=== PATIENT | female | born 1985 | race Caucasian/White ===

== ENCOUNTER 2020-11-27 16:26 | Inpatient (IN) | payer OTHER ==
[~2020-11-27 16:26] MED LIST: Iopamidol-370 76% 500 ML 1 ML ONE
[2020-11-27 17:32] LABS: #Basophils 0.1 thou/uL (0.0-0.2); #Eosinphils 0.1 thou/uL (0.0-0.7); #Lymphocytes 1.5 thou/uL (1.20-3.40); #Monocytes 0.7 thou/uL (0.11-0.59); #Neutrophils 2.6 thou/uL (1.40-6.50); %Basophils 1.3 % (0.0-1.0); %Eosinophils 2.4 % (0.0-10.0); %Lymphocytes 29.6 % (21.0-51.0); %Monocytes 13.9 % (0.0-10.0); %Neutrophils 52.7 % (42.0-75.0); Hemoglobin 10.2 g/dL (12.0-16.0); Mean Corpuscular HGB CONC 31.9 g/dL (32.0-36.0); Mean Corpuscular Hemoglobin 31.7 pg (27.0-31.0); Mean Corpuscular Volume 99.4 fL (78.0-98.0); Mean Platelet Volume 7.5 fL (7.4-10.4); Platelet Count 185 thou/uL (130-400); RBC Distribution Width 15.2 % (11.5-14.5); Red Blood Cell (RBC) Count 3.23 mill/uL (4.20-5.40); White Blood Cell (WBC) Count 4.9 thou/uL (4.8-10.8)
[2020-11-27] MEDS ORDERED: Ondansetron PF 4 MG/2 ML Vial ONE ×2 (17:42→20:32)
[2020-11-27] MEDS ORDERED: Morphine 4 MG/ML VIAL ONE ×2 (17:42→19:04)
[2020-11-27 18:03] LABS: ALT (SGPT) 87 U/L (8-55); AST (SGOT) 156 U/L (5-34); Albumin 2.4 g/dL (3.5-5.0); Alkaline Phosphatase 158 U/L (40-110); Anion Gap 12 mmol/L (10-20); BUN (Urea Nitrogen) 17 mg/dL (7.0-18.7); Bilirubin, Total 3.7 mg/dL (0.2-1.2); Calc. Creatinine Clearance 0 mL/min (70-130); Calcium 8.1 mg/dL (7.8-10.44); Carbon Dioxide 21 mmol/L (22-29); Chloride 111 mmol/L (98-107); Globulin 4.7 g/dL (2.4-3.5); Glucose 118 mg/dL (70-105); Protein, Total 7.1 g/dL (6.0-8.3); Sodium 141 mmol/L (136-145)
[2020-11-27 18:06] LABS: BHCG - Serum Negative (NEGATIVE); Pregs Control Background? CLEAR/WHITE (CLR/WHITE); Pregs Control Bar Appear? YES (CONTROL BAR)
[2020-11-27] MEDS ORDERED: Nitroglycerin 0.4 MG TAB 1 EACH ONE ×2 (20:02→20:40)
[2020-11-27] MEDS ORDERED: Fentanyl 100 MCG/2 ML VIAL ONE (20:32)
[2020-11-27 23:36] LABS: Troponin I Less than 0.010 ng/mL (< 0.028)
[2020-11-28 01:32] VITALS: BMI 23.3
[2020-11-28] MEDS ORDERED: FLU VACC QS2021-22(6MOS UP)/PF 60 MCG/0.5 ML SYRINGE IM ONE (01:45)
[2020-11-28 01:46] LABS: Troponin I Less than 0.010 ng/mL (< 0.028)
[2020-11-28] MEDS ORDERED: Acetaminophen 325 MG TAB PO PRN (02:37)
[2020-11-28] MEDS ORDERED: Nitroglycerin 0.4 MG TAB (25 Tab Bottle) SL PRN (02:37)
[2020-11-28] MEDS ORDERED: Electrolyte Replacement Protocol 1 EACH FS SCH (03:00)
[2020-11-28] MEDS: Potassium Chloride 20 MEQ in Premix Bag 1 BAG IVPB SCH ×2 (05:45→11:53)
[2020-11-28 06:16] LABS: #Eosinphils 0.1 thou/uL (0.0-0.7); #Monocytes 0.6 thou/uL (0.11-0.59); #Neutrophils 2.2 thou/uL (1.40-6.50); %Basophils 0.9 % (0.0-1.0); %Eosinophils 2.4 % (0.0-10.0); %Neutrophils 44.7 % (42.0-75.0); Hemoglobin 10.1 g/dL (12.0-16.0); Mean Corpuscular HGB CONC 31.2 g/dL (32.0-36.0); Mean Corpuscular Hemoglobin 31.6 pg (27.0-31.0); Mean Platelet Volume 7.4 fL (7.4-10.4); Platelet Count 162 thou/uL (130-400); RBC Distribution Width 15.5 % (11.5-14.5); Red Blood Cell (RBC) Count 3.21 mill/uL (4.20-5.40); White Blood Cell (WBC) Count 4.9 thou/uL (4.8-10.8)
[2020-11-28 06:18] LABS: Anion Gap 12 mmol/L (10-20); BUN (Urea Nitrogen) 14 mg/dL (7.0-18.7); Calc. Creatinine Clearance 121 mL/min (70-130); Calcium 7.9 mg/dL (7.8-10.44); Carbon Dioxide 21 mmol/L (22-29); Cardiac Risk 4.7 (Less than 4.5); Chloride 111 mmol/L (98-107); Cholesterol 71 mg/dl (< 200 Desired); Glucose 85 mg/dL (70-105); HDL Cholesterol 15 mg/dL (>60 Neg Risk); LDL Cholesterol, Calculated 46 mg/dL; Sodium 141 mmol/L (136-145); Triglycerides 50 mg/dL (Less than 150)
[2020-11-28 06:21] LABS: Potassium 2.9 mmol/L (3.5-5.1)
[2020-11-28] MEDS: Ondansetron PF 4 MG/2 ML Vial IVP PRN (10:13)
[2020-11-28 12:02] LABS: SARS-CoV-2 PCR by NAA Not Detected (NotDetected)
[2020-11-28] MEDS ORDERED: Potassium Bicarbonate/Cit Ac 20 MEQ TAB PO SCH ×2 (14:15→20:45)
[2020-11-28 14:31] LABS: INR-International Normal Ratio 1.7; Prothrombin Time 19.8 sec (12.0-14.7)
[2020-11-28] MEDS: Lactated Ringer's 1,000 ML IV SCH ×2 (16:20→23:36)
[2020-11-28] MEDS: Naproxen 500 MG TAB PO SCH (21:18)
[2020-11-28] MEDS: Acetaminophen 500 MG TAB PO SCH (21:19)
[2020-11-28] MEDS: Calcium Carbonate 500 MG ChewTAB PO PRN (21:20)
[2020-11-29 06:20] LABS: INR-International Normal Ratio 1.6; Prothrombin Time 19.3 sec (12.0-14.7)
[2020-11-29 06:40] LABS: Anion Gap 13 mmol/L (10-20); BUN (Urea Nitrogen) 12 mg/dL (7.0-18.7); Calc. Creatinine Clearance 114 mL/min (70-130); Calcium 7.9 mg/dL (7.8-10.44); Carbon Dioxide 16 mmol/L (22-29); Chloride 111 mmol/L (98-107); Glucose 99 mg/dL (70-105); Potassium 4.2 mmol/L (3.5-5.1); Sodium 136 mmol/L (136-145)
[2020-11-29] MEDS: Calcium Carbonate 500 MG ChewTAB PO PRN ×2 (08:40→18:28)
[2020-11-29] MEDS: Acetaminophen 500 MG TAB PO SCH ×4 (08:41→21:29)
[2020-11-29] MEDS: Naproxen 500 MG TAB PO SCH ×3 (08:42→21:29)
[2020-11-29] MEDS ORDERED: Apixaban 5 MG TAB PO SCH ×2 (09:00→18:00)
[2020-11-29] MEDS ORDERED: Enoxaparin Sodium 40 MG/0.4 ML SYRINGE SC SCH (09:00)
[2020-11-29] MEDS ORDERED: Ergocalciferol 1.25 MG(50,000 UNITS) CAP PO SCH (09:00)
[2020-11-29] MEDS ORDERED: Lactated Ringer's 1,000 ML IV SCH (10:15)
[2020-11-29] MEDS: Calcium Carbonate 600 MG TAB PO SCH (10:28)
[2020-11-29] MEDS: ALPRAZolam 0.25 MG TAB PO SCH ×2 (10:28→21:28)
[2020-11-29] MEDS: busPIRone HCl 5 MG TAB PO SCH ×2 (10:29→21:27)
[2020-11-29] MEDS: traMADol HCl 50 MG TAB PO SCH ×2 (10:29→21:27)
[2020-11-29] MEDS: Escitalopram Oxalate 20 mg Tablet PO SCH ×2 (10:30→21:27)
[2020-11-29] MEDS: Potassium Chloride 10 MEQ TAB PO SCH (10:30)
[2020-11-29] MEDS: Baclofen 10 MG TAB PO SCH (10:31)
[2020-11-29] MEDS: Gabapentin 100 MG CAP PO SCH ×3 (10:31→21:26)
[2020-11-29] MEDS: Rifaximin 550 MG TAB PO SCH (10:31)
[2020-11-29] MEDS: Lactated Ringer's 1,000 ML IV SCH (14:44)
[2020-11-29 15:10] LABS: Anion Gap 15 mmol/L (10-20); BUN (Urea Nitrogen) 10 mg/dL (7.0-18.7); Calc. Creatinine Clearance 116 mL/min (70-130); Carbon Dioxide 17 mmol/L (22-29); Chloride 107 mmol/L (98-107); Glucose 107 mg/dL (70-105); Potassium 3.6 mmol/L (3.5-5.1); Sodium 135 mmol/L (136-145)
[2020-11-29] MEDS ORDERED: traZODone HCl 50 MG TAB PO SCH (21:00)
[2020-11-29] MEDS: Sodium Bicarbonate Tab 325 MG TAB PO SCH (21:25)
[2020-11-29] MEDS: Ondansetron PF 4 MG/2 ML Vial IVP PRN (22:34)
[2020-11-30 06:39] LABS: Anion Gap 10 mmol/L (10-20); BUN (Urea Nitrogen) 9 mg/dL (7.0-18.7); Calc. Creatinine Clearance 128 mL/min (70-130); Calcium 7.7 mg/dL (7.8-10.44); Carbon Dioxide 21 mmol/L (22-29); Chloride 106 mmol/L (98-107); Glucose 86 mg/dL (70-105); Iron 88 ug/dL (50-170); Iron Binding Capacity, Total 84 mcg/dL (265-497); Sodium 133 mmol/L (136-145)
[2020-11-30 06:58] LABS: Ferritin 416.38 ng/mL (10-291)
[2020-11-30 07:11] LABS: HBCM Index 0.11 S/CO (0-0.79); HBSAg Index 0.21 S/CO (0-0.99); Hep A IgM AB Non-Reactive (NonReactive); Hep A IgM S/CO 0.26 S/CO (0-0.79); Hep B Surf Ag Non-Reactive S/CO (NonReactive); Hep C IgG Ab Non-Reactive (NonReactive); Hep C Index 0.15 S/CO (0-0.79); Hepatitis B Core IgM Abs Non-Reactive (NonReactive)
[2020-11-30] MEDS: Sodium Bicarbonate Tab 325 MG TAB PO SCH ×2 (08:55→10:43)
[2020-11-30] MEDS: traMADol HCl 50 MG TAB PO SCH (08:55)
[2020-11-30] MEDS: Naproxen 500 MG TAB PO SCH (08:57)
[2020-11-30] MEDS: Baclofen 10 MG TAB PO SCH ×2 (08:57→10:44)
[2020-11-30] MEDS: ALPRAZolam 0.25 MG TAB PO SCH (08:57)
[2020-11-30] MEDS: Escitalopram Oxalate 20 mg Tablet PO SCH ×2 (08:57→10:46)
[2020-11-30] MEDS: Potassium Chloride 10 MEQ TAB PO SCH ×2 (08:58→10:45)
[2020-11-30] MEDS: Acetaminophen 500 MG TAB PO SCH ×2 (08:58→16:14)
[2020-11-30] MEDS: busPIRone HCl 5 MG TAB PO SCH ×2 (08:58→10:44)
[2020-11-30] MEDS: Calcium Carbonate 600 MG TAB PO SCH ×2 (08:59→10:45)
[2020-11-30] MEDS: Rifaximin 550 MG TAB PO SCH ×3 (08:59→10:46)
[2020-11-30] MEDS: Gabapentin 100 MG CAP PO SCH ×3 (08:59→16:12)
[2020-11-30] MEDS: Lactated Ringer's 1,000 ML IV SCH (09:15)
[2020-11-30 10:34] LABS: ALT (SGPT) 76 U/L (8-55); AST (SGOT) 95 U/L (5-34); Albumin 2.1 g/dL (3.5-5.0); Alkaline Phosphatase 160 U/L (40-110); Bilirubin, Direct 2.3 mg/dL (0.1-0.3); Protein, Total 6.4 g/dL (6.0-8.3)
[2020-11-30] MEDS ORDERED: Magnevist 469MG/ML 20 ML VIAL ONE (11:24)
[2020-11-30 20:49] VITALS: BP 129/70; TEMP 98.1
[2020-12-01 16:59] LABS: ANA Symphony (Qualitative) Negative (Negative); ANA Symphony (Quantitative) 0.5 Ratio (< 0.7 Negative); EliA Vaculitis New Method **** NEW METHOD ****; Mitochondrial Ab 1.7 U/mL (<4 Negative); dsDNA IgG Antibody 1.6 IU/mL (<10 Negative)
== END 2020-11-30 19:55 | disposition home or self-care (01) | DRG 442 ==
LOC: ERS 16:26 → 2SW 22:01 → OBSVTOIN 11-29 12:18
PROVIDERS: ADMIT Internal Medicine; ATTEND Internal Medicine
DX: K76.0 Fatty (change of) liver, not elsewhere classified (principal); E87.2 Acidosis; E87.1 Hypo-osmolality and hyponatremia; R06.02 Shortness of breath; R07.9 Chest pain, unspecified; R53.1 Weakness; Z20.822 Contact with and (suspected) exposure to COVID-19; I10 Essential (primary) hypertension; F32.A Depression, unspecified; E87.6 Hypokalemia; K21.9 Gastro-esophageal reflux disease without esophagitis; U09.9 Post COVID-19 condition, unspecified; D53.9 Nutritional anemia, unspecified; Z90.49 Acquired absence of other specified parts of digestive tract; Z98.84 Bariatric surgery status; Z99.3 Dependence on wheelchair; Z91.14 Patient's other noncompliance with medication regimen
CPT/HCPCS: 36415; 71275; 74183; 76705; 80048; 80053; 80061; 80074; 80076; 82103; 82390; 82728; 83516; 83540; 83550; 84484; 84703; 85025; 85610; 86038; 86225; 93005; 96372; 96374; 96375; 96376; A9579; G0378; J1650; J2270; J2405; J3010; J3480; J7120; Q9967; U0003; U0005

== ENCOUNTER 2020-12-16 22:13 | Inpatient (IN) | payer OTHER ==
[2020-12-16] MEDS ORDERED: Cefepime 2 GM VIAL ONE (22:41)
[2020-12-16 22:57] LABS: #Eosinphils 0.1 thou/uL (0.0-0.7); #Lymphocytes 1.4 thou/uL (1.20-3.40); #Monocytes 0.6 thou/uL (0.11-0.59); #Neutrophils 3.1 thou/uL (1.40-6.50); %Basophils 0.8 % (0.0-1.0); %Eosinophils 1.5 % (0.0-10.0); %Lymphocytes 26.3 % (21.0-51.0); %Monocytes 12.3 % (0.0-10.0); Hemoglobin 10.4 g/dL (12.0-16.0); Mean Corpuscular HGB CONC 32.2 g/dL (32.0-36.0); Mean Corpuscular Hemoglobin 31.9 pg (27.0-31.0); Mean Platelet Volume 8.3 fL (7.4-10.4); Platelet Count 135 thou/uL (130-400); RBC Distribution Width 15.6 % (11.5-14.5); Red Blood Cell (RBC) Count 3.25 mill/uL (4.20-5.40); White Blood Cell (WBC) Count 5.2 thou/uL (4.8-10.8)
[2020-12-16 23:10] LABS: INR-International Normal Ratio 1.5; PTT 36.8 sec (22.9-36.1); Prothrombin Time 18.6 sec (12.0-14.7)
[2020-12-16 23:18] LABS: Lipase 17 U/L (8-78)
[2020-12-16 23:20] LABS: ALT (SGPT) 44 U/L (8-55); AST (SGOT) 55 U/L (5-34); Acetaminophen Less than 6.0 mcg/mL (10.0-30.0); Albumin 2.2 g/dL (3.5-5.0); Alcohol Less than 10 mg/dL (Less than 10); Alkaline Phosphatase 158 U/L (40-110); Anion Gap 11 mmol/L (10-20); BUN (Urea Nitrogen) 9 mg/dL (7.0-18.7); Bilirubin, Total 2.6 mg/dL (0.2-1.2); Calc. Creatinine Clearance 0 mL/min (70-130); Carbon Dioxide 22 mmol/L (22-29); Chloride 104 mmol/L (98-107); Globulin 5.2 g/dL (2.4-3.5); Glucose 99 mg/dL (70-105); Potassium 4.2 mmol/L (3.5-5.1); Protein, Total 7.4 g/dL (6.0-8.3); Salicylate Less than 8.0 mg/dL (15.0-30.0); Sodium 133 mmol/L (136-145)
[2020-12-16 23:35] LABS: Bilirubin Negative (Negative); Blood, Urine Negative (Negative); Clarity Turbid (Clear); Glucose, Urine (Dipstick) Normal (Negative); Ketone, Urine Negative (Negative); Leukocyte Negative Leu/uL (Negative); Nitrite Negative (Negative); Protein, Urine (Dipstick) Negative (Neg-Trace); Specific Gravity, Urine 1.015 (1.002-1.036); Urobilinogen Normal mg/dL (Less than 2); pH, Urine 6.5 (5.0-9.0)
[2020-12-16 23:45] LABS: Amphetamine Detected (NotDetected); Barbiturates Screen Not Detected (NotDetected); Benzodiazepine Screen Not Detected (NotDetected); Cocaine Metabolite Screen Not Detected (NotDetected); Methadone Not Detected (NotDetected); Methamphetamine Not Detected (NotDetected); Opiate Screen Detected (NotDetected); Oxycodone Screen Not Detected (NotDetected); Phencyclidine (PCP) Not Detected (NotDetected); THC/Cannabinoid Screen Not Detected (NotDetected); Tricyclic Screen Not Detected (NotDetected)
[2020-12-17] MEDS ORDERED: Naloxone HCl 0.4 mg/ml Vial IV SCH (00:45)
[2020-12-17] MEDS ORDERED: Vancomycin 1 GM/200 ML BAG ONE (00:53)
[2020-12-17] MEDS ORDERED: Acetaminophen 650 MG Suppository PR PRN (01:08)
[2020-12-17] MEDS ORDERED: Acetaminophen 325 MG TAB PO PRN (01:08)
[2020-12-17] MEDS ORDERED: Naloxone HCl 0.4 mg/ml Vial ONE (01:10)
[2020-12-17] MEDS ORDERED: Rifaximin 550 MG TAB PO SCH (02:00)
[2020-12-17 02:18] LABS: Lactic Acid 2.3 mmol/L (0.5-2.2)
[2020-12-17 02:38] LABS: RBC Count-Automated (BF) 18 /cu.mm; WBC/Nucleated-Auto (BF) 46 /cu.mm
[2020-12-17 02:39] LABS: BF Color Yellow; Body Fluid Source Ascites Body Fluid; Clarity Clear (Clear); Tube # CUP
[2020-12-17 02:41] LABS: BF Segmented Neutrophils 39 %; Cell Count Non Hematic 53 %; Lymphocytes 8 %
[2020-12-17 04:29] LABS: Anion Gap 8 mmol/L (10-20); BUN (Urea Nitrogen) 9 mg/dL (7.0-18.7); Calc. Creatinine Clearance 184 mL/min (70-130); Calcium 7.5 mg/dL (7.8-10.44); Carbon Dioxide 21 mmol/L (22-29); Chloride 109 mmol/L (98-107); Glucose 108 mg/dL (70-105); Potassium 3.6 mmol/L (3.5-5.1); Sodium 134 mmol/L (136-145)
[2020-12-17 04:56] LABS: #Lymphocytes 0.8 thou/uL (1.20-3.40); #Monocytes 0.5 thou/uL (0.11-0.59); %Basophils 0.5 % (0.0-1.0); %Eosinophils 0.5 % (0.0-10.0); %Lymphocytes 19.2 % (21.0-51.0); %Monocytes 11.2 % (0.0-10.0); %Neutrophils 68.6 % (42.0-75.0); Hemoglobin 9.3 g/dL (12.0-16.0); Mean Corpuscular HGB CONC 31.7 g/dL (32.0-36.0); Mean Corpuscular Hemoglobin 31.1 pg (27.0-31.0); Mean Corpuscular Volume 98.3 fL (78.0-98.0); Mean Platelet Volume 8.1 fL (7.4-10.4); Platelet Count 118 thou/uL (130-400); Platelet Morphology Comment Appears Decreased; RBC Distribution Width 15.5 % (11.5-14.5); Red Blood Cell (RBC) Count 2.99 mill/uL (4.20-5.40); White Blood Cell (WBC) Count 4.3 thou/uL (4.8-10.8)
[2020-12-17] MEDS: Vancomycin HCl 1.25 GM in Sodium Chloride 0.9% 250 ML 250 ML IVPB SCH ×3 (06:11→21:09)
[2020-12-17 06:41] LABS: SARS-CoV-2 NAA Rapid Test Not Detected (NotDetected)
[2020-12-17] MEDS ORDERED: Albumin 25% 25 GM/100 ML BOT IVPB SCH (07:00)
[2020-12-17] MEDS ORDERED: Sodium Chloride 0.9% 500 ML IV SCH (07:00)
[2020-12-17] MEDS ORDERED: NS 0.9% w/ 20 MEQ KCL 1,000 ML/1,000 ML BAG IV SCH (08:00)
[2020-12-17] MEDS ORDERED: FLU VACC QS2021-22(6MOS UP)/PF 60 MCG/0.5 ML SYRINGE IM ONE (09:00)
[2020-12-17] MEDS ORDERED: VANCOMYCIN 1.25 GM/250 ML BAG 1.25 GM in Premix Bag 1 BAG IVPB SCH (09:00)
[2020-12-17] MEDS ORDERED: Enoxaparin Sodium 40 MG/0.4 ML SYRINGE SC SCH (09:00)
[2020-12-17 09:04] LABS: Lactic Acid 1.7 mmol/L (0.5-2.2)
[2020-12-17] MEDS: Cefepime 2 GM in Sodium Chloride 0.9% 100 ML IVPB SCH ×2 (09:39→20:46)
[2020-12-17] MEDS: Rifaximin 550 MG TAB PO SCH ×2 (10:22→20:47)
[2020-12-17 12:47] LABS: ALT (SGPT) 38 U/L (8-55); AST (SGOT) 45 U/L (5-34); Albumin 2.2 g/dL (3.5-5.0); Alkaline Phosphatase 126 U/L (40-110); Anion Gap 9 mmol/L (10-20); BUN (Urea Nitrogen) 10 mg/dL (7.0-18.7); Bilirubin, Total 2.6 mg/dL (0.2-1.2); Calc. Creatinine Clearance 167 mL/min (70-130); Calcium 7.8 mg/dL (7.8-10.44); Carbon Dioxide 20 mmol/L (22-29); Chloride 112 mmol/L (98-107); Globulin 4.4 g/dL (2.4-3.5); Glucose 105 mg/dL (70-105); Magnesium 1.9 mg/dL (1.6-2.6); Potassium 3.6 mmol/L (3.5-5.1); Protein, Total 6.6 g/dL (6.0-8.3); Sodium 137 mmol/L (136-145)
[2020-12-17] MEDS: Pantoprazole 40 MG VIAL IVP SCH (13:13)
[2020-12-17] MEDS ORDERED: Senokot S 8.6-50 MG TAB PO PRN (16:28)
[2020-12-17] MEDS ORDERED: Calcium Carbonate 500 MG ChewTAB PO PRN (16:28)
[2020-12-17] MEDS ORDERED: Electrolyte Replacement Protocol 1 EACH FS SCH (16:30)
[2020-12-17] MEDS ORDERED: Magnesium 2 GM/50 ML 2 GM in Premix Bag 1 BAG IVPB SCH (16:45)
[2020-12-17] MEDS: NS 0.9% w/ 20 MEQ KCL 1,000 ML/1,000 ML BAG IV SCH ×2 (17:11→20:47)
[2020-12-17] MEDS: Ondansetron PF 4 MG/2 ML Vial IVP PRN (18:53)
[2020-12-17] MEDS ORDERED: Promethazine HCl 25 MG/ML VIAL IM SCH (21:30)
[2020-12-18 04:26] LABS: #Basophils 0.1 thou/uL (0.0-0.2); #Eosinphils 0.1 thou/uL (0.0-0.7); #Lymphocytes 1.4 thou/uL (1.20-3.40); #Monocytes 0.6 thou/uL (0.11-0.59); #Neutrophils 2.4 thou/uL (1.40-6.50); %Basophils 1.2 % (0.0-1.0); %Lymphocytes 30.2 % (21.0-51.0); %Monocytes 13.3 % (0.0-10.0); %Neutrophils 52.4 % (42.0-75.0); Hemoglobin 9.2 g/dL (12.0-16.0); Mean Corpuscular HGB CONC 32.1 g/dL (32.0-36.0); Mean Corpuscular Volume 99.5 fL (78.0-98.0); Mean Platelet Volume 8.1 fL (7.4-10.4); Platelet Count 129 thou/uL (130-400); RBC Distribution Width 16.2 % (11.5-14.5); Red Blood Cell (RBC) Count 2.86 mill/uL (4.20-5.40); White Blood Cell (WBC) Count 4.7 thou/uL (4.8-10.8)
[2020-12-18 04:50] LABS: ALT (SGPT) 36 U/L (8-55); AST (SGOT) 52 U/L (5-34); Alkaline Phosphatase 118 U/L (40-110); Anion Gap 11 mmol/L (10-20); BUN (Urea Nitrogen) 10 mg/dL (7.0-18.7); Bilirubin, Total 2.5 mg/dL (0.2-1.2); Calc. Creatinine Clearance 159 mL/min (70-130); Calcium 7.5 mg/dL (7.8-10.44); Carbon Dioxide 18 mmol/L (22-29); Chloride 116 mmol/L (98-107); Globulin 4.2 g/dL (2.4-3.5); Glucose 100 mg/dL (70-105); Magnesium 2.2 mg/dL (1.6-2.6); Potassium 3.8 mmol/L (3.5-5.1); Protein, Total 6.2 g/dL (6.0-8.3); Sodium 141 mmol/L (136-145)
[2020-12-18 04:51] LABS: Phosphorus 3.1 mg/dL (2.3-4.7)
[2020-12-18] MEDS: NS 0.9% w/ 20 MEQ KCL 1,000 ML/1,000 ML BAG IV SCH ×3 (05:15→20:21)
[2020-12-18] MEDS: metroNIDAZOLE 250 MG TAB PER TUBE SCH ×3 (05:15→20:32)
[2020-12-18] MEDS: Vancomycin HCl 1.25 GM in Sodium Chloride 0.9% 250 ML 250 ML IVPB SCH ×2 (05:38→13:43)
[2020-12-18] MEDS ORDERED: metroNIDAZOLE 250 MG in Admixture Fee 2 EACH IVPB SCH (06:00)
[2020-12-18 06:32] LABS: Vancomycin, Trough 20.7 ug/mL
[2020-12-18] MEDS ORDERED: HYDROcodone/Acetaminophen 5/325 mg Tablet PO PRN (08:32)
[2020-12-18] MEDS: ALPRAZolam 0.25 MG TAB PO PRN ×2 (08:48→16:54)
[2020-12-18] MEDS: Rifaximin 550 MG TAB PO SCH ×2 (08:48→20:32)
[2020-12-18] MEDS: Cefepime 2 GM in Sodium Chloride 0.9% 100 ML IVPB SCH ×2 (09:05→20:33)
[2020-12-18] MEDS: Pantoprazole 40 MG VIAL IVP SCH (10:43)
[2020-12-18] MEDS ORDERED: traZODone HCl 50 MG TAB PO PRN (15:09)
[2020-12-18] MEDS: Ondansetron PF 4 MG/2 ML Vial IVP PRN (17:06)
[2020-12-18] MEDS: traMADol HCl 50 MG TAB PO PRN ×2 (17:23→21:48)
[2020-12-18] MEDS: Baclofen 10 MG TAB PO SCH (20:33)
[2020-12-18] MEDS: Apixaban 2.5 MG TAB PO SCH (20:33)
[2020-12-19] MEDS: Morphine 4 MG/ML VIAL SLOW IVP PRN ×2 (00:02→04:29)
[2020-12-19] MEDS: NS 0.9% w/ 20 MEQ KCL 1,000 ML/1,000 ML BAG IV SCH ×3 (00:02→08:35)
[2020-12-19] MEDS: Ondansetron PF 4 MG/2 ML Vial IVP PRN ×3 (01:12→21:00)
[2020-12-19] MEDS: metroNIDAZOLE 250 MG TAB PER TUBE SCH ×3 (05:56→22:06)
[2020-12-19 08:19] LABS: #Basophils 0.1 thou/uL (0.0-0.2); #Eosinphils 0.2 thou/uL (0.0-0.7); #Lymphocytes 2.2 thou/uL (1.20-3.40); %Basophils 1.5 % (0.0-1.0); %Eosinophils 2.9 % (0.0-10.0); %Lymphocytes 29.4 % (21.0-51.0); %Monocytes 13.8 % (0.0-10.0); %Neutrophils 52.5 % (42.0-75.0); Hemoglobin 10.2 g/dL (12.0-16.0); Mean Corpuscular HGB CONC 31.7 g/dL (32.0-36.0); Mean Corpuscular Hemoglobin 32.2 pg (27.0-31.0); Platelet Count 134 thou/uL (130-400); RBC Distribution Width 16.1 % (11.5-14.5); Red Blood Cell (RBC) Count 3.17 mill/uL (4.20-5.40); White Blood Cell (WBC) Count 7.5 thou/uL (4.8-10.8)
[2020-12-19] MEDS: Rifaximin 550 MG TAB PO SCH ×2 (08:34→22:06)
[2020-12-19] MEDS: Baclofen 10 MG TAB PO SCH ×2 (08:34→22:06)
[2020-12-19] MEDS: ALPRAZolam 0.25 MG TAB PO PRN ×2 (08:35→23:55)
[2020-12-19] MEDS: Cefepime 2 GM in Sodium Chloride 0.9% 100 ML IVPB SCH (08:35)
[2020-12-19] MEDS: Apixaban 2.5 MG TAB PO SCH ×2 (08:35→22:05)
[2020-12-19 08:37] LABS: Phosphorus 2.6 mg/dL (2.3-4.7)
[2020-12-19 08:41] LABS: ALT (SGPT) 42 U/L (8-55); AST (SGOT) 58 U/L (5-34); Alkaline Phosphatase 125 U/L (40-110); Anion Gap 10 mmol/L (10-20); BUN (Urea Nitrogen) 10 mg/dL (7.0-18.7); Bilirubin, Total 2.9 mg/dL (0.2-1.2); Calc. Creatinine Clearance 161 mL/min (70-130); Calcium 7.8 mg/dL (7.8-10.44); Carbon Dioxide 17 mmol/L (22-29); Chloride 111 mmol/L (98-107); Globulin 4.6 g/dL (2.4-3.5); Glucose 98 mg/dL (70-105); Magnesium 1.9 mg/dL (1.6-2.6); Potassium 3.7 mmol/L (3.5-5.1); Protein, Total 6.6 g/dL (6.0-8.3); Sodium 134 mmol/L (136-145)
[2020-12-19] MEDS ORDERED: Magnesium 2 GM/50 ML 2 GM in Premix Bag 1 BAG IVPB SCH (10:00)
[2020-12-19] MEDS: traMADol HCl 50 MG TAB PO PRN (12:05)
[2020-12-19] MEDS ORDERED: Morphine 2 MG/ML VIAL SLOW IVP PRN (14:17)
[2020-12-19] MEDS ORDERED: traMADol HCl 50 MG TAB PO PRN ×2 (14:17→17:21)
[2020-12-19] MEDS ORDERED: Morphine 4 MG/ML VIAL SLOW IVP PRN ×4 (14:30→20:54)
[2020-12-19] MEDS ORDERED: NS 0.9% w/ 20 MEQ KCL 1,000 ML/1,000 ML BAG IV SCH (14:58)
[2020-12-19] MEDS ORDERED: Potassium Chloride 20 MEQ TAB PO SCH (17:30)
[2020-12-19] MEDS ORDERED: Furosemide 40 MG TAB PO SCH (17:30)
[2020-12-19] MEDS: Albumin 25% 25 GM/100 ML BOT IVPB SCH (18:19)
[2020-12-19] MEDS: Cefdinir 300 MG CAP PO SCH (22:06)
[2020-12-20] MEDS: Albumin 25% 25 GM/100 ML BOT IVPB SCH ×3 (01:22→17:00)
[2020-12-20 04:36] LABS: ALT (SGPT) 29 U/L (8-55); AST (SGOT) 38 U/L (5-34); Albumin 2.4 g/dL (3.5-5.0); Alkaline Phosphatase 100 U/L (40-110); Anion Gap 7 mmol/L (10-20); BUN (Urea Nitrogen) 6 mg/dL (7.0-18.7); Bilirubin, Total 2.2 mg/dL (0.2-1.2); Calc. Creatinine Clearance 183 mL/min (70-130); Calcium 7.7 mg/dL (7.8-10.44); Carbon Dioxide 20 mmol/L (22-29); Chloride 107 mmol/L (98-107); Globulin 3.6 g/dL (2.4-3.5); Glucose 101 mg/dL (70-105); Magnesium 1.9 mg/dL (1.6-2.6); Phosphorus 2.5 mg/dL (2.3-4.7); Potassium 3.2 mmol/L (3.5-5.1); Sodium 131 mmol/L (136-145)
[2020-12-20] MEDS ORDERED: hydrOXYzine 10 MG TAB PO SCH (04:45)
[2020-12-20 04:49] LABS: #Basophils 0.1 thou/uL (0.0-0.2); #Eosinphils 0.1 thou/uL (0.0-0.7); #Lymphocytes 1.6 thou/uL (1.20-3.40); #Monocytes 0.8 thou/uL (0.11-0.59); #Neutrophils 3.3 thou/uL (1.40-6.50); %Basophils 0.9 % (0.0-1.0); %Eosinophils 2.4 % (0.0-10.0); %Lymphocytes 27.6 % (21.0-51.0); %Monocytes 13.4 % (0.0-10.0); %Neutrophils 55.7 % (42.0-75.0); Anisocytosis SLIGHT = 6-15 cells (100X) (0-5/hpf); Hemoglobin 8.3 g/dL (12.0-16.0); Hypochromia SLIGHT = 6-15 cells (100X) (0-5/hpf); MDiff Complete? YES; Mean Corpuscular HGB CONC 31.8 g/dL (32.0-36.0); Mean Corpuscular Hemoglobin 31.9 pg (27.0-31.0); Mean Platelet Volume 7.9 fL (7.4-10.4); Platelet Count 119 thou/uL (130-400); Platelet Morphology Comment Appears Decreased; RBC Distribution Width 16.3 % (11.5-14.5); Red Blood Cell (RBC) Count 2.59 mill/uL (4.20-5.40); Schistocytes SLIGHT = 2-5 cells (100X) (0-1/hpf); White Blood Cell (WBC) Count 5.9 thou/uL (4.8-10.8)
[2020-12-20] MEDS: metroNIDAZOLE 250 MG TAB PER TUBE SCH (05:37)
[2020-12-20] MEDS: metroNIDAZOLE 250 MG TAB PO SCH ×3 (06:13→22:00)
[2020-12-20] MEDS ORDERED: Potassium Chloride 20 MEQ TAB PO SCH (07:00)
[2020-12-20] MEDS ORDERED: Magnesium 2 GM/50 ML 2 GM in Premix Bag 1 BAG IVPB SCH (07:00)
[2020-12-20] MEDS: Baclofen 10 MG TAB PO SCH ×2 (08:48→22:00)
[2020-12-20] MEDS: Cefdinir 300 MG CAP PO SCH (08:48)
[2020-12-20] MEDS: Furosemide 20 MG TAB PO SCH ×3 (08:49→14:36)
[2020-12-20] MEDS: Rifaximin 550 MG TAB PO SCH ×2 (08:49→22:00)
[2020-12-20] MEDS: Apixaban 2.5 MG TAB PO SCH ×3 (08:49→22:00)
[2020-12-20] MEDS: Potassium Chloride 20 MEQ TAB PO SCH ×2 (08:49→16:08)
[2020-12-20] MEDS: Ondansetron PF 4 MG/2 ML Vial IVP PRN (09:52)
[2020-12-20] MEDS ORDERED: traMADol HCl 50 MG TAB PO PRN (12:14)
[2020-12-20] MEDS ORDERED: Morphine 4 MG/ML VIAL SLOW IVP PRN (12:25)
[2020-12-20] MEDS ORDERED: Morphine 4 MG/ML VIAL SLOW IVP SCH (13:00)
[2020-12-20] MEDS: Ondansetron ODT 4 MG TAB PO PRN (14:42)
[2020-12-20] MEDS: Nystatin Powder 15 GM BOT TOP PRN (23:00)
[2020-12-20] MEDS: Morphine 4 MG/ML VIAL SLOW IVP PRN (23:42)
[2020-12-21] MEDS: Morphine 4 MG/ML VIAL SLOW IVP PRN ×3 (01:35→22:25)
[2020-12-21] MEDS: metroNIDAZOLE 250 MG TAB PO SCH ×4 (05:56→20:36)
[2020-12-21 08:08] LABS: INR-International Normal Ratio 2.3; Prothrombin Time 25.3 sec (12.0-14.7)
[2020-12-21] MEDS: Apixaban 2.5 MG TAB PO SCH ×2 (08:11→20:36)
[2020-12-21 08:12] LABS: #Basophils 0.1 thou/uL (0.0-0.2); #Eosinphils 0.1 thou/uL (0.0-0.7); #Lymphocytes 1.5 thou/uL (1.20-3.40); #Monocytes 0.6 thou/uL (0.11-0.59); #Neutrophils 2.5 thou/uL (1.40-6.50); %Basophils 1.1 % (0.0-1.0); %Eosinophils 1.9 % (0.0-10.0); %Monocytes 12.4 % (0.0-10.0); %Neutrophils 52.7 % (42.0-75.0); Hemoglobin 8.2 g/dL (12.0-16.0); Mean Corpuscular Hemoglobin 32.1 pg (27.0-31.0); Mean Platelet Volume 8.2 fL (7.4-10.4); Platelet Count 117 thou/uL (130-400); RBC Distribution Width 15.9 % (11.5-14.5); Red Blood Cell (RBC) Count 2.55 mill/uL (4.20-5.40); White Blood Cell (WBC) Count 4.7 thou/uL (4.8-10.8)
[2020-12-21] MEDS: Rifaximin 550 MG TAB PO SCH ×2 (08:12→20:36)
[2020-12-21] MEDS: Baclofen 10 MG TAB PO SCH ×2 (08:12→20:36)
[2020-12-21 08:21] LABS: ALT (SGPT) 25 U/L (8-55); AST (SGOT) 30 U/L (5-34); Albumin 2.5 g/dL (3.5-5.0); Alkaline Phosphatase 97 U/L (40-110); Anion Gap 11 mmol/L (10-20); BUN (Urea Nitrogen) 4 mg/dL (7.0-18.7); Calc. Creatinine Clearance 199 mL/min (70-130); Calcium 7.9 mg/dL (7.8-10.44); Carbon Dioxide 20 mmol/L (22-29); Chloride 108 mmol/L (98-107); Globulin 3.3 g/dL (2.4-3.5); Glucose 111 mg/dL (70-105); Magnesium 1.7 mg/dL (1.6-2.6); Phosphorus 1.8 mg/dL (2.3-4.7); Protein, Total 5.8 g/dL (6.0-8.3); Sodium 136 mmol/L (136-145)
[2020-12-21] MEDS ORDERED: Magnesium 2 GM/50 ML 2 GM in Premix Bag 1 BAG IVPB SCH ×2 (09:00→11:45)
[2020-12-21] MEDS ORDERED: Potassium Chloride 20 MEQ TAB PO SCH (09:00)
[2020-12-21] MEDS: PHOS-NAK 1 PKT PACK PO SCH ×2 (11:11→15:06)
[2020-12-21] MEDS ORDERED: Mineral Oil ENEMA PR SCH (12:15)
[2020-12-21] MEDS ORDERED: Furosemide 20 MG/2 ML VIAL SLOW IVP SCH (12:15)
[2020-12-21] MEDS: Ondansetron ODT 4 MG TAB PO PRN (15:07)
[2020-12-21] MEDS: Ondansetron PF 4 MG/2 ML Vial IVP PRN (22:20)
[2020-12-21] MEDS: Nystatin Powder 15 GM BOT TOP PRN (22:24)
[2020-12-21] MEDS: ALPRAZolam 0.25 MG TAB PO PRN (22:50)
[2020-12-22] MEDS: metroNIDAZOLE 250 MG TAB PO SCH ×2 (06:24→13:12)
[2020-12-22 07:00] VITALS: BMI 34.2
[2020-12-22 07:05] LABS: Anion Gap 8 mmol/L (10-20); BUN (Urea Nitrogen) 4 mg/dL (7.0-18.7); Calc. Creatinine Clearance 203 mL/min (70-130); Calcium 7.8 mg/dL (7.8-10.44); Carbon Dioxide 23 mmol/L (22-29); Chloride 105 mmol/L (98-107); Glucose 86 mg/dL (70-105); Hemoglobin 7.7 g/dL (12.0-16.0); Potassium 3.3 mmol/L (3.5-5.1); Sodium 133 mmol/L (136-145)
[2020-12-22 07:06] LABS: Platelet Count 118 thou/uL (130-400)
[2020-12-22 07:58] VITALS: BP 126/65; TEMP 98.3
[2020-12-22] MEDS ORDERED: Potassium Chloride 20 MEQ TAB PO SCH (08:00)
[2020-12-22] MEDS: Rifaximin 550 MG TAB PO SCH (08:33)
[2020-12-22] MEDS: Apixaban 2.5 MG TAB PO SCH (08:34)
[2020-12-22] MEDS: Baclofen 10 MG TAB PO SCH (08:34)
[2020-12-22] MEDS ORDERED: Mineral Oil ENEMA PR SCH (10:15)
== END 2020-12-22 14:48 | disposition home or self-care (01) | DRG 441 ==
LOC: ERS 22:13 → IMCU/EMU 12-17 00:40 → CCU 12-17 09:57 → T4-A 12-19 17:15
PROVIDERS: ADMIT Student in an Organized Health Care Education/Training Program; ATTEND Family Medicine
PROC: 0W9G3ZZ Drainage of Peritoneal Cavity, Percutaneous Approach (ICD-10-PCS; principal; 2020-12-17)
PROC: 0DH67UZ Insertion of Feeding Device into Stomach, Via Natural or Artificial Opening (ICD-10-PCS; 2020-12-18)
PROC: 5A09357 Assistance with Respiratory Ventilation, Less than 24 Consecutive Hours, Continuous Positive Airway Pressure (ICD-10-PCS; 2020-12-18)
DX: K72.00 Acute and subacute hepatic failure without coma (principal); E43 Unspecified severe protein-calorie malnutrition; G92.8 Other toxic encephalopathy; E87.1 Hypo-osmolality and hyponatremia; R18.8 Other ascites; E87.2 Acidosis; K56.7 Ileus, unspecified; Z20.822 Contact with and (suspected) exposure to COVID-19; F31.9 Bipolar disorder, unspecified; I10 Essential (primary) hypertension; K74.60 Unspecified cirrhosis of liver; F15.10 Other stimulant abuse, uncomplicated; F11.10 Opioid abuse, uncomplicated; K76.0 Fatty (change of) liver, not elsewhere classified; D69.6 Thrombocytopenia, unspecified; E86.0 Dehydration; G89.4 Chronic pain syndrome; D53.9 Nutritional anemia, unspecified; F41.9 Anxiety disorder, unspecified; T40.695A Adverse effect of other narcotics, initial encounter; E87.6 Hypokalemia; K59.00 Constipation, unspecified; Z28.21 Immunization not carried out because of patient refusal; Z79.899 Other long term (current) drug therapy; Z79.01 Long term (current) use of anticoagulants; Z86.16 Personal history of COVID-19; Z87.01 Personal history of pneumonia (recurrent); Z90.49 Acquired absence of other specified parts of digestive tract; Z68.34 Body mass index [BMI] 34.0-34.9, adult; Z86.718 Personal history of other venous thrombosis and embolism
CPT/HCPCS: 36415; 36416; 70450; 71045; 71110; 74018; 80048; 80053; 80202; 80306; 80307; 81003; 82140; 82390; 83605; 83690; 83735; 83880; 84100; 84484; 85014; 85018; 85025; 85049; 85060; 85610; 85730; 87040; 89051; 93005; 94660; C9113; J0692; J1940; J2270; J2310; J2405; J2550; J3370; J3475; J3480; J3490; J7030; J7050; P9047; Q0162; U0002

== ENCOUNTER 2021-01-31 14:32 | Inpatient (IN) | payer OTHER ==
[2021-01-31] MEDS ORDERED: Fentanyl 100 MCG/2 ML VIAL ONE ×6 (14:46→21:28)
[2021-01-31] MEDS ORDERED: Ondansetron PF 4 MG/2 ML Vial ONE ×2 (14:46→19:00)
[2021-01-31 15:28] LABS: #Eosinphils 0.1 thou/uL (0.0-0.7); #Lymphocytes 1.3 thou/uL (1.20-3.40); #Monocytes 0.3 thou/uL (0.11-0.59); #Neutrophils 3.7 thou/uL (1.40-6.50); %Basophils 0.8 % (0.0-1.0); %Eosinophils 2.6 % (0.0-10.0); %Lymphocytes 23.3 % (21.0-51.0); %Monocytes 5.8 % (0.0-10.0); %Neutrophils 67.5 % (42.0-75.0); Hemoglobin 9.5 g/dL (12.0-16.0); Mean Corpuscular HGB CONC 32.6 g/dL (32.0-36.0); Mean Corpuscular Hemoglobin 32.1 pg (27.0-31.0); Mean Corpuscular Volume 98.5 fL (78.0-98.0); Mean Platelet Volume 8.3 fL (7.4-10.4); Platelet Count 167 thou/uL (130-400); RBC Distribution Width 15.5 % (11.5-14.5); Red Blood Cell (RBC) Count 2.95 mill/uL (4.20-5.40); White Blood Cell (WBC) Count 5.4 thou/uL (4.8-10.8)
[2021-01-31] MEDS ORDERED: Morphine 4 MG/ML VIAL ONE ×4 (15:34→22:17)
[2021-01-31 15:36] LABS: INR-International Normal Ratio 1.2; PTT 28.3 sec (22.9-36.1); Prothrombin Time 15.1 sec (12.0-14.7)
[2021-01-31 15:47] LABS: ALT (SGPT) 28 U/L (8-55); AST (SGOT) 43 U/L (5-34); Albumin 2.5 g/dL (3.5-5.0); Alkaline Phosphatase 166 U/L (40-110); Anion Gap 11 mmol/L (10-20); BUN (Urea Nitrogen) 12 mg/dL (7.0-18.7); Bilirubin, Total 0.9 mg/dL (0.2-1.2); Calc. Creatinine Clearance 0 mL/min (70-130); Calcium 7.7 mg/dL (7.8-10.44); Carbon Dioxide 20 mmol/L (22-29); Chloride 105 mmol/L (98-107); Globulin 4.1 g/dL (2.4-3.5); Glucose 84 mg/dL (70-105); Potassium 3.8 mmol/L (3.5-5.1); Protein, Total 6.6 g/dL (6.0-8.3); Sodium 132 mmol/L (136-145)
[2021-01-31] MEDS ORDERED: Promethazine HCl 25 MG/ML VIAL IM PRN ×2 (16:24→20:20)
[2021-01-31] MEDS ORDERED: hydrALAZINE 20 MG/ML VIAL SLOW IVP PRN (16:24)
[2021-01-31] MEDS ORDERED: Mineral Oil ENEMA PR PRN (16:29)
[2021-01-31] MEDS ORDERED: traMADol HCl 50 MG TAB PO PRN (16:32)
[2021-01-31] MEDS ORDERED: Lactated Ringer's 1,000 ML IV SCH (17:00)
[2021-01-31] MEDS ORDERED: CEFAZOLIN 1 GM VIAL SLOW IVP SCH (17:31)
[2021-01-31] MEDS ORDERED: traMADol HCl 50 MG TAB PO SCH (18:00)
[2021-01-31] MEDS ORDERED: ceFAZolin 1 GM/D5W 1 GM in Premix Bag 1 BAG IVPB SCH (18:15)
[2021-01-31] MEDS: traMADol HCl 50 MG TAB PO SCH (18:19)
[2021-01-31 18:22] LABS: SARS-CoV-2 NAA Rapid Test Not Detected (NotDetected)
[2021-01-31] MEDS ORDERED: ceFAZolin 2 GM/DEX 5% 100 ML BAG ONE (18:52)
[2021-01-31] MEDS ORDERED: Rocuronium Bromide 10 MG/ML (10ML VIAL) ONE (19:00)
[2021-01-31] MEDS ORDERED: Lidocaine 1% PF 5 ML VIAL ONE (19:00)
[2021-01-31] MEDS ORDERED: PROPOFOL 200 MG/20 ML VIAL ONE (19:00)
[2021-01-31] MEDS ORDERED: Dexamethasone 20 MG/5 ML VIAL ONE (19:00)
[2021-01-31] MEDS ORDERED: PHENYLEPHRINE-NS 100 MCG/ML 10 ML SYRINGE ONE ×2 (19:00→19:46)
[2021-01-31] MEDS ORDERED: SUGAMMADEX SODIUM 200 MG/2 ML VIAL ONE (20:08)
[2021-01-31] MEDS ORDERED: Promethazine HCl 25 MG/ML VIAL IVPB PRN (20:20)
[2021-01-31] MEDS ORDERED: Ondansetron HCl/PF 4 MG/2 ML Vial IVP PRN (20:20)
[2021-01-31] MEDS ORDERED: HYDROmorphone 2 MG/ML VIAL ONE (20:27)
[2021-01-31] MEDS ORDERED: Gabapentin 100 MG CAP PO SCH ×2 (21:00→23:41)
[2021-01-31] MEDS ORDERED: Promethazine HCl 25 MG/ML VIAL ONE (21:43)
[2021-01-31] MEDS: busPIRone HCl 5 MG TAB PO SCH (23:22)
[2021-01-31] MEDS: ALPRAZolam 0.25 MG TAB PO SCH (23:24)
[2021-01-31] MEDS: Escitalopram Oxalate 20 mg Tablet PO SCH (23:24)
[2021-01-31] MEDS: traZODone HCl 50 MG TAB PO SCH (23:24)
[2021-01-31] MEDS ORDERED: diphenhydrAMINE 25 MG CAP PO PRN (23:38)
[2021-02-01 00:30] VITALS: BMI 25.2
[2021-02-01] MEDS: traMADol HCl 50 MG TAB PO SCH ×4 (00:45→18:01)
[2021-02-01] MEDS: Morphine 4 MG/ML VIAL SLOW IVP PRN ×5 (01:42→22:30)
[2021-02-01] MEDS: ceFAZolin Sodium/D5W 2 GM in Premix Bag 1 BAG IVPB SCH ×3 (03:51→22:19)
[2021-02-01] MEDS: Ondansetron PF 4 MG/2 ML Vial IVP PRN ×3 (04:39→22:30)
[2021-02-01 05:55] LABS: #Lymphocytes 0.3 thou/uL (1.20-3.40); #Monocytes 0.1 thou/uL (0.11-0.59); #Neutrophils 6.1 thou/uL (1.40-6.50); %Eosinophils 0.2 % (0.0-10.0); %Lymphocytes 5.2 % (21.0-51.0); %Neutrophils 92.7 % (42.0-75.0); Hemoglobin 9.5 g/dL (12.0-16.0); Mean Corpuscular Hemoglobin 32.7 pg (27.0-31.0); Mean Platelet Volume 8.5 fL (7.4-10.4); Platelet Count 147 thou/uL (130-400); RBC Distribution Width 15.7 % (11.5-14.5); Red Blood Cell (RBC) Count 2.89 mill/uL (4.20-5.40); White Blood Cell (WBC) Count 6.6 thou/uL (4.8-10.8)
[2021-02-01 06:09] LABS: ALT (SGPT) 30 U/L (8-55); AST (SGOT) 32 U/L (5-34); Albumin 2.5 g/dL (3.5-5.0); Alkaline Phosphatase 154 U/L (40-110); Anion Gap 12 mmol/L (10-20); BUN (Urea Nitrogen) 10 mg/dL (7.0-18.7); Bilirubin, Direct 0.5 mg/dL (0.1-0.3); Bilirubin, Total 0.6 mg/dL (0.2-1.2); Calc. Creatinine Clearance 111 mL/min (70-130); Calcium 8.2 mg/dL (7.8-10.44); Carbon Dioxide 20 mmol/L (22-29); Chloride 108 mmol/L (98-107); Glucose 322 mg/dL (70-105); Magnesium 1.8 mg/dL (1.6-2.6); Protein, Total 6.7 g/dL (6.0-8.3); Sodium 136 mmol/L (136-145)
[2021-02-01] MEDS ORDERED: Acetaminophen 325 MG TAB PO SCH ×2 (07:00→12:00)
[2021-02-01] MEDS: ALPRAZolam 0.25 MG TAB PO SCH (08:28)
[2021-02-01] MEDS: Calcium Carbonate 600 MG TAB PO SCH (08:28)
[2021-02-01] MEDS: Escitalopram Oxalate 20 mg Tablet PO SCH ×2 (08:28→22:21)
[2021-02-01] MEDS: busPIRone HCl 5 MG TAB PO SCH ×2 (08:30→22:18)
[2021-02-01] MEDS: Meloxicam 15 MG TAB PO SCH (08:30)
[2021-02-01] MEDS ORDERED: Ergocalciferol 1.25 MG(50,000 UNITS) CAP PO SCH (09:00)
[2021-02-01] MEDS ORDERED: Baclofen 10 MG TAB PO SCH (09:00)
[2021-02-01] MEDS: Gabapentin 100 MG CAP PO SCH ×2 (15:00→22:17)
[2021-02-01] MEDS: Acetaminophen 325 MG TAB PO SCH ×2 (17:04→22:16)
[2021-02-01] MEDS: Rifaximin 550 MG TAB PO SCH (22:14)
[2021-02-01] MEDS: Spironolactone 25 MG TAB PO SCH (22:16)
[2021-02-01] MEDS: Baclofen 10 MG TAB PO SCH (22:19)
[2021-02-02] MEDS: traMADol HCl 50 MG TAB PO SCH ×4 (00:31→18:18)
[2021-02-02] MEDS: Morphine 4 MG/ML VIAL SLOW IVP PRN ×4 (02:29→21:34)
[2021-02-02] MEDS: traZODone HCl 50 MG TAB PO SCH ×2 (02:32→21:10)
[2021-02-02] MEDS: ALPRAZolam 0.25 MG TAB PO SCH ×3 (04:20→21:06)
[2021-02-02] MEDS: Acetaminophen 325 MG TAB PO SCH (04:20)
[2021-02-02 05:04] LABS: #Eosinphils 0.1 thou/uL (0.0-0.7); #Lymphocytes 1.7 thou/uL (1.20-3.40); #Monocytes 0.7 thou/uL (0.11-0.59); #Neutrophils 5.4 thou/uL (1.40-6.50); %Basophils 0.2 % (0.0-1.0); %Eosinophils 0.7 % (0.0-10.0); %Lymphocytes 21.9 % (21.0-51.0); %Monocytes 8.6 % (0.0-10.0); %Neutrophils 68.7 % (42.0-75.0); Hemoglobin 8.1 g/dL (12.0-16.0); Mean Corpuscular HGB CONC 32.7 g/dL (32.0-36.0); Mean Corpuscular Hemoglobin 32.3 pg (27.0-31.0); Mean Corpuscular Volume 98.8 fL (78.0-98.0); Mean Platelet Volume 7.8 fL (7.4-10.4); Platelet Count 133 thou/uL (130-400); RBC Distribution Width 15.8 % (11.5-14.5); Red Blood Cell (RBC) Count 2.51 mill/uL (4.20-5.40); White Blood Cell (WBC) Count 7.8 thou/uL (4.8-10.8)
[2021-02-02 05:18] LABS: ALT (SGPT) 20 U/L (8-55); AST (SGOT) 25 U/L (5-34); Albumin 2.3 g/dL (3.5-5.0); Alkaline Phosphatase 117 U/L (40-110); Anion Gap 8 mmol/L (10-20); BUN (Urea Nitrogen) 10 mg/dL (7.0-18.7); Bilirubin, Direct 0.5 mg/dL (0.1-0.3); Bilirubin, Total 0.7 mg/dL (0.2-1.2); Calc. Creatinine Clearance 149 mL/min (70-130); Calcium 8.2 mg/dL (7.8-10.44); Carbon Dioxide 26 mmol/L (22-29); Chloride 106 mmol/L (98-107); Glucose 93 mg/dL (70-105); Magnesium 1.9 mg/dL (1.6-2.6); Phosphorus 2.6 mg/dL (2.3-4.7); Protein, Total 5.8 g/dL (6.0-8.3); Sodium 136 mmol/L (136-145)
[2021-02-02] MEDS ORDERED: Morphine 2 MG/ML VIAL SLOW IVP PRN (08:46)
[2021-02-02] MEDS ORDERED: Rifaximin 550 MG TAB PO SCH (09:00)
[2021-02-02] MEDS: Ferrous Sulfate 325 MG TAB PO SCH ×2 (09:04→16:40)
[2021-02-02] MEDS: Gabapentin 100 MG CAP PO SCH ×3 (09:06→21:09)
[2021-02-02] MEDS: Meloxicam 15 MG TAB PO SCH (09:06)
[2021-02-02] MEDS: Furosemide 20 MG TAB PO SCH (09:07)
[2021-02-02] MEDS: Potassium Chloride 10 MEQ TAB PO SCH (09:07)
[2021-02-02] MEDS: busPIRone HCl 5 MG TAB PO SCH ×3 (09:07→21:07)
[2021-02-02] MEDS: Escitalopram Oxalate 20 mg Tablet PO SCH ×2 (09:08→21:08)
[2021-02-02] MEDS: Ascorbic Acid 500 mg Chewable Tablet PO SCH ×2 (09:08→21:06)
[2021-02-02] MEDS: Baclofen 10 MG TAB PO SCH ×3 (09:08→21:07)
[2021-02-02] MEDS: Calcium Carbonate 600 MG TAB PO SCH (09:08)
[2021-02-02] MEDS: Spironolactone 25 MG TAB PO SCH ×2 (09:09→21:33)
[2021-02-02] MEDS: Rifaximin 550 MG TAB PO SCH ×2 (09:09→21:15)
[2021-02-02] MEDS: Ondansetron PF 4 MG/2 ML Vial IVP PRN ×2 (09:22→16:44)
[2021-02-02] MEDS: Acetaminophen/Codeine 30-300mg Tablet PO SCH ×2 (11:44→20:14)
[2021-02-02] MEDS ORDERED: Lactated Ringer's 1,000 ML IV SCH (18:30)
[2021-02-03] MEDS: traMADol HCl 50 MG TAB PO SCH ×4 (00:32→17:09)
[2021-02-03] MEDS: Acetaminophen/Codeine 30-300mg Tablet PO SCH ×4 (00:33→17:11)
[2021-02-03] MEDS: Morphine 4 MG/ML VIAL SLOW IVP PRN (02:20)
[2021-02-03 05:38] LABS: #Eosinphils 0.2 thou/uL (0.0-0.7); #Lymphocytes 1.5 thou/uL (1.20-3.40); #Monocytes 0.8 thou/uL (0.11-0.59); #Neutrophils 4.9 thou/uL (1.40-6.50); %Basophils 0.4 % (0.0-1.0); %Eosinophils 3.1 % (0.0-10.0); %Lymphocytes 20.5 % (21.0-51.0); %Monocytes 10.1 % (0.0-10.0); %Neutrophils 65.9 % (42.0-75.0); Hemoglobin 8.2 g/dL (12.0-16.0); Mean Corpuscular Hemoglobin 31.8 pg (27.0-31.0); Mean Corpuscular Volume 99.3 fL (78.0-98.0); Mean Platelet Volume 7.9 fL (7.4-10.4); Platelet Count 136 thou/uL (130-400); RBC Distribution Width 15.8 % (11.5-14.5); Red Blood Cell (RBC) Count 2.56 mill/uL (4.20-5.40); White Blood Cell (WBC) Count 7.4 thou/uL (4.8-10.8)
[2021-02-03] MEDS: Calcium Carbonate 600 MG TAB PO SCH (08:30)
[2021-02-03] MEDS: Rifaximin 550 MG TAB PO SCH (08:30)
[2021-02-03] MEDS: Meloxicam 15 MG TAB PO SCH (08:31)
[2021-02-03] MEDS: ALPRAZolam 0.25 MG TAB PO SCH (08:32)
[2021-02-03] MEDS: busPIRone HCl 5 MG TAB PO SCH ×2 (08:33→15:32)
[2021-02-03] MEDS: Gabapentin 100 MG CAP PO SCH ×2 (08:33→15:32)
[2021-02-03] MEDS: Potassium Chloride 10 MEQ TAB PO SCH (08:34)
[2021-02-03] MEDS: Ferrous Sulfate 325 MG TAB PO SCH ×2 (08:34→17:08)
[2021-02-03] MEDS: Escitalopram Oxalate 20 mg Tablet PO SCH (08:34)
[2021-02-03] MEDS: Ascorbic Acid 500 mg Chewable Tablet PO SCH (08:35)
[2021-02-03] MEDS: Furosemide 20 MG TAB PO SCH (08:35)
[2021-02-03] MEDS: Baclofen 10 MG TAB PO SCH ×2 (08:35→15:32)
[2021-02-03] MEDS: Spironolactone 25 MG TAB PO SCH (08:39)
[2021-02-03 16:36] VITALS: BP 103/65; TEMP 97.8
== END 2021-02-03 17:29 | disposition home or self-care (01) | DRG 481 ==
LOC: ERS 14:32 → SURG A 16:24
PROVIDERS: ADMIT Specialist; ATTEND Surgery
PROC: 0QS634Z Reposition Right Upper Femur with Internal Fixation Device, Percutaneous Approach (ICD-10-PCS; principal; 2021-01-31)
DX: S72.141A Displaced intertrochanteric fracture of right femur, initial encounter for closed fracture (principal); E46 Unspecified protein-calorie malnutrition; K74.60 Unspecified cirrhosis of liver; I10 Essential (primary) hypertension; W19.XXXA Unspecified fall, initial encounter; F31.9 Bipolar disorder, unspecified; N05.9 Unspecified nephritic syndrome with unspecified morphologic changes; F19.10 Other psychoactive substance abuse, uncomplicated; G89.4 Chronic pain syndrome; Z20.822 Contact with and (suspected) exposure to COVID-19; Z86.16 Personal history of COVID-19; Y92.89 Other specified places as the place of occurrence of the external cause; Z88.1 Allergy status to other antibiotic agents; Z68.25 Body mass index [BMI] 25.0-25.9, adult
CPT/HCPCS: 36415; 71045; 72170; 76000; 80048; 80053; 80076; 82140; 83735; 84100; 85025; 85610; 85730; 86850; 86900; 86901; 93005; 94640; 96374; 96375; 96376; C1713; G0390; J1100; J1170; J2270; J2405; J2550; J2704; J3010; J7120; J7620; P9045; U0002

== ENCOUNTER 2021-02-07 21:51 | Inpatient (IN) | payer OTHER ==
[2021-02-07] MEDS ORDERED: Ketorolac Tromethamine 30 MG/ML VIAL ONE (22:50)
[2021-02-07] MEDS ORDERED: Morphine 4 MG/ML VIAL ONE (22:50)
[2021-02-07] MEDS ORDERED: Cefepime 2 GM VIAL ONE (22:50)
[2021-02-07 23:12] LABS: #Eosinphils 0.1 thou/uL (0.0-0.7); #Lymphocytes 0.4 thou/uL (1.20-3.40); #Monocytes 0.6 thou/uL (0.11-0.59); #Neutrophils 2.8 thou/uL (1.40-6.50); %Basophils 0.4 % (0.0-1.0); %Eosinophils 1.9 % (0.0-10.0); %Lymphocytes 9.2 % (21.0-51.0); %Monocytes 14.6 % (0.0-10.0); %Neutrophils 73.9 % (42.0-75.0); Hemoglobin 8.2 g/dL (12.0-16.0); Mean Corpuscular HGB CONC 32.2 g/dL (32.0-36.0); Mean Corpuscular Hemoglobin 31.5 pg (27.0-31.0); Mean Corpuscular Volume 97.8 fL (78.0-98.0); Mean Platelet Volume 7.5 fL (7.4-10.4); Platelet Count 147 thou/uL (130-400); RBC Distribution Width 14.7 % (11.5-14.5); Red Blood Cell (RBC) Count 2.59 mill/uL (4.20-5.40); White Blood Cell (WBC) Count 3.8 thou/uL (4.8-10.8)
[2021-02-07 23:23] LABS: INR-International Normal Ratio 1.3; PTT 35.4 sec (22.9-36.1)
[2021-02-07 23:32] LABS: ALT (SGPT) 25 U/L (8-55); AST (SGOT) 49 U/L (5-34); Albumin 2.2 g/dL (3.5-5.0); Alkaline Phosphatase 160 U/L (40-110); Anion Gap 8 mmol/L (10-20); BUN (Urea Nitrogen) 8 mg/dL (7.0-18.7); Bilirubin, Total 1.1 mg/dL (0.2-1.2); Calc. Creatinine Clearance 0 mL/min (70-130); Calcium 7.8 mg/dL (7.8-10.44); Carbon Dioxide 23 mmol/L (22-29); Chloride 102 mmol/L (98-107); Globulin 3.6 g/dL (2.4-3.5); Glucose 88 mg/dL (70-105); Potassium 3.9 mmol/L (3.5-5.1); Protein, Total 5.8 g/dL (6.0-8.3); Sodium 129 mmol/L (136-145)
[2021-02-07] MEDS ORDERED: Vancomycin HCl 1.5 GM in Sodium Chloride 0.9% 250 ML 300 ML IVPB SCH (23:45)
[2021-02-08 00:18] LABS: BHCG - Serum Negative (NEGATIVE); Pregs Control Background? CLEAR/WHITE (CLR/WHITE); Pregs Control Bar Appear? YES (CONTROL BAR)
[2021-02-08 00:38] LABS: Bacteria/HPF None Seen HPF (None Seen); Bilirubin Negative (Negative); Blood, Urine Negative (Negative); Clarity Clear (Clear); Glucose, Urine (Dipstick) Normal (Negative); Ketone, Urine Negative (Negative); Leukocyte Negative Leu/uL (Negative); Nitrite 1+ (Negative); Protein, Urine (Dipstick) Negative (Neg-Trace); Specific Gravity, Urine 1.015 (1.002-1.036); Squamous Epithelial 0-3 HPF (0-3); Urobilinogen 6 mg/dL (Less than 2); WBC/HPF 0-3 HPF (0-3)
[2021-02-08] MEDS ORDERED: Fentanyl 100 MCG/2 ML VIAL ONE (00:58)
[2021-02-08 01:27] LABS: SARS-CoV-2 NAA Rapid Test DETECTED (NotDetected)
[2021-02-08] MEDS ORDERED: Dexamethasone 10 MG/ML VIAL ONE (03:01)
[2021-02-08] MEDS ORDERED: Senokot S 8.6-50 MG TAB PO PRN (03:07)
[2021-02-08 03:57] VITALS: BMI 26.6
[2021-02-08 04:53] LABS: Hemoglobin 7.6 g/dL (12.0-16.0); Mean Corpuscular HGB CONC 31.8 g/dL (32.0-36.0); Mean Corpuscular Hemoglobin 31.4 pg (27.0-31.0); Mean Corpuscular Volume 98.7 fL (78.0-98.0); Mean Platelet Volume 7.5 fL (7.4-10.4); Platelet Count 134 thou/uL (130-400); RBC Distribution Width 14.7 % (11.5-14.5); Red Blood Cell (RBC) Count 2.42 mill/uL (4.20-5.40); White Blood Cell (WBC) Count 2.8 thou/uL (4.8-10.8)
[2021-02-08 05:04] LABS: Anion Gap 8 mmol/L (10-20); BUN (Urea Nitrogen) 10 mg/dL (7.0-18.7); Calc. Creatinine Clearance 158 mL/min (70-130); Calcium 7.9 mg/dL (7.8-10.44); Carbon Dioxide 21 mmol/L (22-29); Chloride 105 mmol/L (98-107); Glucose 170 mg/dL (70-105); Potassium 3.5 mmol/L (3.5-5.1); Sodium 130 mmol/L (136-145)
[2021-02-08 07:26] LABS: Band 22 % (5-11); Eosinophils 2 % (0-10); Lymphocytes 19 % (21-51); MDiff Complete? YES; Monocytes 6 % (0-10); Neutrophil 50 % (42-75)
[2021-02-08] MEDS: Ascorbic Acid 500 mg Chewable Tablet PO SCH (07:45)
[2021-02-08] MEDS: Zinc Sulfate 220 MG CAP PO SCH (07:45)
[2021-02-08] MEDS: Furosemide 20 MG TAB PO SCH ×2 (07:45→13:43)
[2021-02-08] MEDS: Spironolactone 25 MG TAB PO SCH ×2 (07:45→16:33)
[2021-02-08] MEDS: Enoxaparin Sodium 40 MG/0.4 ML SYRINGE SC SCH (07:45)
[2021-02-08] MEDS: oxyCODONE ER 10 MG TAB PO SCH ×2 (07:45→20:06)
[2021-02-08] MEDS: Ondansetron PF 4 MG/2 ML Vial IVP PRN ×2 (07:50→21:27)
[2021-02-08] MEDS ORDERED: Dexamethasone 10 MG/ML VIAL SLOW IVP SCH (09:00)
[2021-02-08] MEDS ORDERED: Gabapentin 300 MG CAP PO SCH (10:30)
[2021-02-08] MEDS: Baclofen 10 MG TAB PO SCH ×3 (10:32→20:08)
[2021-02-08] MEDS: oxyCODONE 5 MG TAB PO PRN ×3 (12:23→23:50)
[2021-02-08] MEDS: Gabapentin 300 MG CAP PO SCH (16:33)
[2021-02-08] MEDS ORDERED: traZODone HCl 50 MG TAB PO SCH (21:30)
[2021-02-08] MEDS ORDERED: ALPRAZolam 0.25 MG TAB PO SCH (21:30)
[2021-02-09] MEDS: Gabapentin 300 MG CAP PO SCH ×3 (02:32→17:08)
[2021-02-09 07:40] LABS: #Lymphocytes 0.6 thou/uL (1.20-3.40); #Monocytes 0.5 thou/uL (0.11-0.59); #Neutrophils 2.1 thou/uL (1.40-6.50); %Eosinophils 0.2 % (0.0-10.0); %Lymphocytes 18.6 % (21.0-51.0); %Monocytes 14.5 % (0.0-10.0); %Neutrophils 66.7 % (42.0-75.0); Hemoglobin 7.7 g/dL (12.0-16.0); Mean Corpuscular HGB CONC 31.2 g/dL (32.0-36.0); Mean Corpuscular Hemoglobin 30.8 pg (27.0-31.0); Mean Corpuscular Volume 98.9 fL (78.0-98.0); Mean Platelet Volume 7.6 fL (7.4-10.4); Platelet Count 156 thou/uL (130-400); RBC Distribution Width 14.5 % (11.5-14.5); Red Blood Cell (RBC) Count 2.49 mill/uL (4.20-5.40); White Blood Cell (WBC) Count 3.1 thou/uL (4.8-10.8)
[2021-02-09 07:52] LABS: ALT (SGPT) 24 U/L (8-55); AST (SGOT) 28 U/L (5-34); Albumin 2.2 g/dL (3.5-5.0); Alkaline Phosphatase 167 U/L (40-110); Anion Gap 9 mmol/L (10-20); BUN (Urea Nitrogen) 8 mg/dL (7.0-18.7); Bilirubin, Direct 0.4 mg/dL (0.1-0.3); Bilirubin, Total 0.6 mg/dL (0.2-1.2); Calc. Creatinine Clearance 163 mL/min (70-130); Calcium 8.2 mg/dL (7.8-10.44); Carbon Dioxide 26 mmol/L (22-29); Chloride 107 mmol/L (98-107); Glucose 120 mg/dL (70-105); Potassium 3.9 mmol/L (3.5-5.1); Protein, Total 5.8 g/dL (6.0-8.3); Sodium 138 mmol/L (136-145)
[2021-02-09] MEDS: Enoxaparin Sodium 40 MG/0.4 ML SYRINGE SC SCH (08:23)
[2021-02-09] MEDS: Zinc Sulfate 220 MG CAP PO SCH (08:23)
[2021-02-09] MEDS: Dexamethasone 4 MG TAB PO SCH (08:23)
[2021-02-09] MEDS: Baclofen 10 MG TAB PO SCH ×3 (08:24→19:35)
[2021-02-09] MEDS: Furosemide 20 MG TAB PO SCH ×2 (08:24→13:52)
[2021-02-09] MEDS: oxyCODONE ER 10 MG TAB PO SCH ×2 (08:24→19:33)
[2021-02-09] MEDS: Ascorbic Acid 500 mg Chewable Tablet PO SCH (08:24)
[2021-02-09] MEDS: Spironolactone 25 MG TAB PO SCH ×2 (08:24→17:09)
[2021-02-09] MEDS: oxyCODONE 5 MG TAB PO PRN ×3 (10:36→22:01)
[2021-02-09] MEDS: Ondansetron ODT 4 MG TAB PO PRN (17:09)
[2021-02-09] MEDS: ALPRAZolam 0.5 MG TAB PO SCH (19:33)
[2021-02-09] MEDS: traZODone HCl 50 MG TAB PO SCH (22:01)
[2021-02-10] MEDS: oxyCODONE 5 MG TAB PO PRN ×2 (01:21→14:46)
[2021-02-10] MEDS: Gabapentin 300 MG CAP PO SCH ×3 (01:21→17:16)
[2021-02-10 07:36] LABS: #Lymphocytes 0.9 thou/uL (1.20-3.40); #Monocytes 0.4 thou/uL (0.11-0.59); %Eosinophils 0.1 % (0.0-10.0); %Monocytes 8.9 % (0.0-10.0); Hemoglobin 8.3 g/dL (12.0-16.0); Mean Corpuscular HGB CONC 31.6 g/dL (32.0-36.0); Mean Corpuscular Hemoglobin 31.4 pg (27.0-31.0); Mean Corpuscular Volume 99.3 fL (78.0-98.0); Mean Platelet Volume 7.5 fL (7.4-10.4); Platelet Count 172 thou/uL (130-400); RBC Distribution Width 14.6 % (11.5-14.5); Red Blood Cell (RBC) Count 2.65 mill/uL (4.20-5.40); White Blood Cell (WBC) Count 4.3 thou/uL (4.8-10.8)
[2021-02-10 07:57] LABS: Anion Gap 9 mmol/L (10-20); BUN (Urea Nitrogen) 7 mg/dL (7.0-18.7); Calc. Creatinine Clearance 169 mL/min (70-130); Carbon Dioxide 26 mmol/L (22-29); Chloride 106 mmol/L (98-107); Glucose 92 mg/dL (70-105); Potassium 4.3 mmol/L (3.5-5.1); Sodium 137 mmol/L (136-145)
[2021-02-10] MEDS: Furosemide 20 MG TAB PO SCH ×2 (08:20→14:35)
[2021-02-10] MEDS: Ascorbic Acid 500 mg Chewable Tablet PO SCH ×2 (08:20→20:26)
[2021-02-10] MEDS: Baclofen 10 MG TAB PO SCH ×3 (08:20→20:26)
[2021-02-10] MEDS: Zinc Sulfate 220 MG CAP PO SCH (08:20)
[2021-02-10] MEDS: ALPRAZolam 0.5 MG TAB PO SCH ×2 (08:20→20:26)
[2021-02-10] MEDS: Enoxaparin Sodium 40 MG/0.4 ML SYRINGE SC SCH (08:20)
[2021-02-10] MEDS: Spironolactone 25 MG TAB PO SCH ×2 (08:20→17:16)
[2021-02-10] MEDS: Dexamethasone 4 MG TAB PO SCH (08:20)
[2021-02-10] MEDS: Ondansetron ODT 4 MG TAB PO PRN ×2 (08:20→14:46)
[2021-02-10] MEDS: oxyCODONE ER 10 MG TAB PO SCH ×2 (08:21→20:26)
[2021-02-10] MEDS: busPIRone HCl 5 MG TAB PO SCH ×2 (14:35→20:25)
[2021-02-10 14:36] LABS: SARS-CoV-2 NAA Rapid Test DETECTED (NotDetected)
[2021-02-10] MEDS: Ferrous Sulfate 325 MG TAB PO SCH (17:32)
[2021-02-11] MEDS: traZODone HCl 50 MG TAB PO SCH ×2 (01:26→21:02)
[2021-02-11] MEDS: Gabapentin 300 MG CAP PO SCH ×4 (01:26→17:21)
[2021-02-11] MEDS: oxyCODONE ER 10 MG TAB PO SCH ×3 (08:45→21:02)
[2021-02-11] MEDS: Enoxaparin Sodium 40 MG/0.4 ML SYRINGE SC SCH ×2 (08:45→11:15)
[2021-02-11] MEDS: Calcium Carbonate 600 MG TAB PO SCH ×2 (08:45→11:15)
[2021-02-11] MEDS: Dexamethasone 4 MG TAB PO SCH ×2 (08:46→11:14)
[2021-02-11] MEDS: ALPRAZolam 0.5 MG TAB PO SCH ×3 (08:46→21:01)
[2021-02-11] MEDS: Rifaximin 550 MG TAB PO SCH ×2 (08:46→11:15)
[2021-02-11] MEDS: Furosemide 20 MG TAB PO SCH ×3 (08:46→14:14)
[2021-02-11] MEDS: Spironolactone 25 MG TAB PO SCH ×3 (08:46→17:21)
[2021-02-11] MEDS: Escitalopram Oxalate 20 mg Tablet PO SCH ×2 (08:47→11:15)
[2021-02-11] MEDS: Ascorbic Acid 500 mg Chewable Tablet PO SCH ×3 (08:47→20:49)
[2021-02-11] MEDS: Ferrous Sulfate 325 MG TAB PO SCH ×2 (08:47→17:20)
[2021-02-11] MEDS: busPIRone HCl 5 MG TAB PO SCH ×4 (08:47→21:02)
[2021-02-11] MEDS: Ondansetron ODT 4 MG TAB PO PRN (08:47)
[2021-02-11] MEDS: Zinc Sulfate 220 MG CAP PO SCH ×2 (08:47→11:15)
[2021-02-11] MEDS: Baclofen 10 MG TAB PO SCH ×4 (08:47→21:01)
[2021-02-12] MEDS: oxyCODONE 5 MG TAB PO PRN ×3 (00:43→12:36)
[2021-02-12] MEDS: Gabapentin 300 MG CAP PO SCH ×3 (02:30→18:01)
[2021-02-12 05:04] LABS: #Lymphocytes 0.7 thou/uL (1.20-3.40); #Monocytes 0.3 thou/uL (0.11-0.59); %Eosinophils 0.2 % (0.0-10.0); %Lymphocytes 17.2 % (21.0-51.0); %Monocytes 8.3 % (0.0-10.0); %Neutrophils 74.3 % (42.0-75.0); Hemoglobin 10.8 g/dL (12.0-16.0); Mean Corpuscular HGB CONC 33.3 g/dL (32.0-36.0); Mean Corpuscular Volume 96.3 fL (78.0-98.0); Mean Platelet Volume 6.9 fL (7.4-10.4); Platelet Count 163 thou/uL (130-400); RBC Distribution Width 15.1 % (11.5-14.5); Red Blood Cell (RBC) Count 3.36 mill/uL (4.20-5.40)
[2021-02-12 05:27] LABS: ALT (SGPT) 38 U/L (8-55); AST (SGOT) 45 U/L (5-34); Albumin 2.7 g/dL (3.5-5.0); Alkaline Phosphatase 196 U/L (40-110); Anion Gap 12 mmol/L (10-20); BUN (Urea Nitrogen) 16 mg/dL (7.0-18.7); Calc. Creatinine Clearance 150 mL/min (70-130); Calcium 8.2 mg/dL (7.8-10.44); Carbon Dioxide 21 mmol/L (22-29); Chloride 104 mmol/L (98-107); Globulin 4.2 g/dL (2.4-3.5); Glucose 77 mg/dL (70-105); Magnesium 1.9 mg/dL (1.6-2.6); Phosphorus 3.4 mg/dL (2.3-4.7); Protein, Total 6.9 g/dL (6.0-8.3); Sodium 133 mmol/L (136-145)
[2021-02-12] MEDS: busPIRone HCl 5 MG TAB PO SCH ×3 (09:28→21:01)
[2021-02-12] MEDS: Dexamethasone 4 MG TAB PO SCH (09:28)
[2021-02-12] MEDS: Rifaximin 550 MG TAB PO SCH ×2 (09:29→21:01)
[2021-02-12] MEDS: Ferrous Sulfate 325 MG TAB PO SCH ×2 (09:29→15:24)
[2021-02-12] MEDS: Zinc Sulfate 220 MG CAP PO SCH (09:29)
[2021-02-12] MEDS: Baclofen 10 MG TAB PO SCH ×3 (09:29→21:01)
[2021-02-12] MEDS: ALPRAZolam 0.5 MG TAB PO SCH ×2 (09:29→21:01)
[2021-02-12] MEDS: Calcium Carbonate 600 MG TAB PO SCH (09:29)
[2021-02-12] MEDS: Spironolactone 25 MG TAB PO SCH ×2 (09:29→15:23)
[2021-02-12] MEDS: Furosemide 20 MG TAB PO SCH ×2 (09:30→12:36)
[2021-02-12] MEDS: Ascorbic Acid 500 mg Chewable Tablet PO SCH ×2 (09:30→21:02)
[2021-02-12] MEDS: oxyCODONE ER 10 MG TAB PO SCH ×2 (09:30→21:02)
[2021-02-12] MEDS: Escitalopram Oxalate 20 mg Tablet PO SCH (09:31)
[2021-02-12] MEDS: Enoxaparin Sodium 40 MG/0.4 ML SYRINGE SC SCH (09:31)
[2021-02-12] MEDS: Ondansetron ODT 4 MG TAB PO PRN (09:48)
[2021-02-12] MEDS: Ondansetron PF 4 MG/2 ML Vial IVP PRN (15:23)
[2021-02-12] MEDS: guaiFENesin 200 MG TAB PO PRN (23:31)
[2021-02-13] MEDS: oxyCODONE 5 MG TAB PO PRN ×3 (00:57→17:39)
[2021-02-13] MEDS: traZODone HCl 50 MG TAB PO SCH (01:07)
[2021-02-13] MEDS: Gabapentin 300 MG CAP PO SCH ×3 (01:07→17:39)
[2021-02-13 07:27] LABS: Vitamin D, 25 Hydroxy 4.7 ng/ml (> 30.0)
[2021-02-13] MEDS: Enoxaparin Sodium 40 MG/0.4 ML SYRINGE SC SCH (08:15)
[2021-02-13] MEDS: busPIRone HCl 5 MG TAB PO SCH ×3 (08:16→20:10)
[2021-02-13] MEDS: Dexamethasone 4 MG TAB PO SCH (08:16)
[2021-02-13] MEDS: Ascorbic Acid 500 mg Chewable Tablet PO SCH ×2 (08:16→20:10)
[2021-02-13] MEDS: Calcium Carbonate 600 MG TAB PO SCH (08:17)
[2021-02-13] MEDS: Furosemide 20 MG TAB PO SCH (08:17)
[2021-02-13] MEDS: oxyCODONE ER 10 MG TAB PO SCH ×2 (08:18→20:11)
[2021-02-13] MEDS: Escitalopram Oxalate 20 mg Tablet PO SCH (08:18)
[2021-02-13] MEDS: ALPRAZolam 0.5 MG TAB PO SCH ×2 (08:18→20:10)
[2021-02-13] MEDS: Rifaximin 550 MG TAB PO SCH ×2 (08:18→20:11)
[2021-02-13] MEDS: Ferrous Sulfate 325 MG TAB PO SCH ×2 (08:18→17:39)
[2021-02-13] MEDS: Zinc Sulfate 220 MG CAP PO SCH (08:18)
[2021-02-13] MEDS: Baclofen 10 MG TAB PO SCH ×3 (08:19→20:11)
[2021-02-13] MEDS ORDERED: Spironolactone 100 MG TAB ONE (08:38)
[2021-02-13] MEDS: Spironolactone 100 MG TAB PO SCH (08:40)
[2021-02-13] MEDS ORDERED: Ergocalciferol 1.25 MG(50,000 UNITS) CAP PO SCH (09:00)
[2021-02-13] MEDS ORDERED: Spironolactone 25 MG TAB PO SCH (09:00)
[2021-02-13] MEDS: Ondansetron PF 4 MG/2 ML Vial IVP PRN ×2 (09:00→17:40)
[2021-02-13 14:35] LABS: SARS-CoV-2 NAA Rapid Test DETECTED (NotDetected)
[2021-02-13] MEDS ORDERED: Iron, Sodium Ferric Gluconate 250 MG in Sodium Chloride 0.9% 250 ML 250 ML IVPB SCH (18:30)
[2021-02-13] MEDS: guaiFENesin 200 MG TAB PO PRN (22:22)
[2021-02-14] MEDS: traZODone HCl 50 MG TAB PO SCH ×2 (02:02→21:52)
[2021-02-14] MEDS: Gabapentin 300 MG CAP PO SCH ×3 (02:02→16:50)
[2021-02-14] MEDS: oxyCODONE 5 MG TAB PO PRN ×4 (02:08→23:51)
[2021-02-14] MEDS: Enoxaparin Sodium 40 MG/0.4 ML SYRINGE SC SCH (09:18)
[2021-02-14] MEDS: busPIRone HCl 5 MG TAB PO SCH ×3 (09:19→21:49)
[2021-02-14] MEDS: Calcium Carbonate 600 MG TAB PO SCH (09:19)
[2021-02-14] MEDS: oxyCODONE ER 10 MG TAB PO SCH ×2 (09:20→21:51)
[2021-02-14] MEDS: ALPRAZolam 0.5 MG TAB PO SCH ×2 (09:20→21:49)
[2021-02-14] MEDS: Zinc Sulfate 220 MG CAP PO SCH (09:21)
[2021-02-14] MEDS: Ondansetron ODT 4 MG TAB PO PRN ×2 (09:21→16:51)
[2021-02-14] MEDS: Rifaximin 550 MG TAB PO SCH ×2 (09:21→21:52)
[2021-02-14] MEDS: Ferrous Sulfate 325 MG TAB PO SCH ×2 (09:21→16:50)
[2021-02-14] MEDS: Baclofen 10 MG TAB PO SCH ×3 (09:21→21:49)
[2021-02-14] MEDS: Spironolactone 100 MG TAB PO SCH (09:21)
[2021-02-14] MEDS: Furosemide 20 MG TAB PO SCH (09:21)
[2021-02-14] MEDS: Escitalopram Oxalate 20 mg Tablet PO SCH (09:21)
[2021-02-14] MEDS: Ascorbic Acid 500 mg Chewable Tablet PO SCH ×2 (09:22→21:49)
[2021-02-14] MEDS: Dexamethasone 4 MG TAB PO SCH (09:22)
[2021-02-14] MEDS: guaiFENesin 200 MG TAB PO PRN (23:26)
[2021-02-15] MEDS: Gabapentin 300 MG CAP PO SCH ×3 (02:30→14:21)
[2021-02-15] MEDS: busPIRone HCl 5 MG TAB PO SCH ×5 (09:40→22:13)
[2021-02-15] MEDS: Ferrous Sulfate 325 MG TAB PO SCH ×3 (09:40→16:04)
[2021-02-15] MEDS: Spironolactone 100 MG TAB PO SCH ×2 (09:41→14:19)
[2021-02-15] MEDS: Furosemide 20 MG TAB PO SCH ×2 (09:41→14:20)
[2021-02-15] MEDS: Calcium Carbonate 600 MG TAB PO SCH ×2 (09:41→14:20)
[2021-02-15] MEDS: Ascorbic Acid 500 mg Chewable Tablet PO SCH ×4 (09:41→22:13)
[2021-02-15] MEDS: Baclofen 10 MG TAB PO SCH ×3 (09:41→16:04)
[2021-02-15] MEDS: Rifaximin 550 MG TAB PO SCH ×4 (09:41→22:13)
[2021-02-15] MEDS: Zinc Sulfate 220 MG CAP PO SCH ×2 (09:41→14:21)
[2021-02-15] MEDS: Enoxaparin Sodium 40 MG/0.4 ML SYRINGE SC SCH (09:42)
[2021-02-15] MEDS: oxyCODONE ER 10 MG TAB PO SCH ×2 (09:42→14:20)
[2021-02-15] MEDS: Dexamethasone 4 MG TAB PO SCH ×2 (09:43→14:19)
[2021-02-15] MEDS: ALPRAZolam 0.5 MG TAB PO SCH ×3 (09:43→21:25)
[2021-02-15] MEDS: Escitalopram Oxalate 20 mg Tablet PO SCH ×2 (09:46→14:20)
[2021-02-15 17:30] LABS: #Lymphocytes 1.3 thou/uL (1.20-3.40); #Monocytes 0.8 thou/uL (0.11-0.59); #Neutrophils 6.8 thou/uL (1.40-6.50); %Basophils 0.3 % (0.0-1.0); %Eosinophils 0.2 % (0.0-10.0); %Lymphocytes 14.7 % (21.0-51.0); %Monocytes 8.8 % (0.0-10.0); Hemoglobin 10.9 g/dL (12.0-16.0); Mean Corpuscular HGB CONC 33.1 g/dL (32.0-36.0); Mean Corpuscular Hemoglobin 32.2 pg (27.0-31.0); Mean Corpuscular Volume 97.3 fL (78.0-98.0); Mean Platelet Volume 7.1 fL (7.4-10.4); Platelet Count 181 thou/uL (130-400); RBC Distribution Width 14.5 % (11.5-14.5); Red Blood Cell (RBC) Count 3.39 mill/uL (4.20-5.40); White Blood Cell (WBC) Count 8.9 thou/uL (4.8-10.8)
[2021-02-15 17:52] LABS: ALT (SGPT) 38 U/L (8-55); AST (SGOT) 30 U/L (5-34); Alkaline Phosphatase 198 U/L (40-110); Anion Gap 11 mmol/L (10-20); BUN (Urea Nitrogen) 21 mg/dL (7.0-18.7); Bilirubin, Total 1.6 mg/dL (0.2-1.2); Calc. Creatinine Clearance 141 mL/min (70-130); Calcium 8.5 mg/dL (7.8-10.44); Carbon Dioxide 25 mmol/L (22-29); Chloride 103 mmol/L (98-107); Globulin 4.6 g/dL (2.4-3.5); Glucose 84 mg/dL (70-105); Magnesium 2.1 mg/dL (1.6-2.6); Phosphorus 3.3 mg/dL (2.3-4.7); Protein, Total 7.6 g/dL (6.0-8.3); Sodium 135 mmol/L (136-145)
[2021-02-15 18:11] LABS: HIV (1/2) Antibody/Antigen Non-Reactive (NonReactive); HIV 1/2 INDEX 0.11 S/CO (<1.00)
[2021-02-15 18:17] LABS: Vitamin B12 584 pg/mL (211-911)
[2021-02-15 18:23] LABS: Bilirubin Negative (Negative); Blood, Urine Negative (Negative); Clarity Turbid (Clear); Glucose, Urine (Dipstick) Normal (Negative); Ketone, Urine Negative (Negative); Leukocyte 500 Leu/uL (Negative); Nitrite Negative (Negative); Protein, Urine (Dipstick) 50 mg/dL (Neg-Trace); RBC/HPF 0-3 HPF (0-3); Specific Gravity, Urine 1.021 (1.002-1.036); Squamous Epithelial 0-3 HPF (0-3); Urobilinogen 6 mg/dL (Less than 2); WBC/HPF 0-3 HPF (0-3); pH, Urine 8.5 (5.0-9.0)
[2021-02-15 18:23] LABS: INR-International Normal Ratio 1.1; PTT 30.1 sec (22.9-36.1); Prothrombin Time 14.1 sec (12.0-14.7)
[2021-02-15 18:24] LABS: Bacteria/HPF 1+ HPF (None Seen); Urine Culture Reflex Yes Yes
[2021-02-15] MEDS ORDERED: Fleet Enema 133 ML BOT PR SCH (21:00)
[2021-02-15] MEDS: traZODone HCl 50 MG TAB PO SCH (21:27)
[2021-02-16] MEDS: busPIRone HCl 5 MG TAB PO SCH ×4 (01:58→20:07)
[2021-02-16 04:58] LABS: #Monocytes 0.7 thou/uL (0.11-0.59); %Basophils 0.1 % (0.0-1.0); %Eosinophils 0.2 % (0.0-10.0); %Lymphocytes 14.4 % (21.0-51.0); %Monocytes 9.9 % (0.0-10.0); %Neutrophils 75.3 % (42.0-75.0); Hemoglobin 9.9 g/dL (12.0-16.0); Mean Corpuscular HGB CONC 32.6 g/dL (32.0-36.0); Mean Corpuscular Hemoglobin 31.7 pg (27.0-31.0); Mean Corpuscular Volume 97.3 fL (78.0-98.0); Platelet Count 168 thou/uL (130-400); RBC Distribution Width 14.6 % (11.5-14.5); Red Blood Cell (RBC) Count 3.12 mill/uL (4.20-5.40); White Blood Cell (WBC) Count 6.6 thou/uL (4.8-10.8)
[2021-02-16 05:25] LABS: ALT (SGPT) 39 U/L (8-55); AST (SGOT) 31 U/L (5-34); Albumin 2.7 g/dL (3.5-5.0); Alkaline Phosphatase 169 U/L (40-110); Anion Gap 12 mmol/L (10-20); BUN (Urea Nitrogen) 21 mg/dL (7.0-18.7); Bilirubin, Total 1.2 mg/dL (0.2-1.2); Calc. Creatinine Clearance 143 mL/min (70-130); Calcium 8.4 mg/dL (7.8-10.44); Carbon Dioxide 19 mmol/L (22-29); Chloride 104 mmol/L (98-107); Globulin 4.1 g/dL (2.4-3.5); Glucose 83 mg/dL (70-105); Phosphorus 3.1 mg/dL (2.3-4.7); Protein, Total 6.8 g/dL (6.0-8.3); Sodium 131 mmol/L (136-145)
[2021-02-16] MEDS: Calcium Carbonate 600 MG TAB PO SCH (09:29)
[2021-02-16] MEDS: Senokot S 8.6-50 MG TAB PO SCH ×2 (09:29→20:07)
[2021-02-16] MEDS: Spironolactone 100 MG TAB PO SCH (09:29)
[2021-02-16] MEDS: Zinc Sulfate 220 MG CAP PO SCH (09:29)
[2021-02-16] MEDS: ALPRAZolam 0.5 MG TAB PO SCH ×2 (09:29→20:08)
[2021-02-16] MEDS: Ferrous Sulfate 325 MG TAB PO SCH ×2 (09:29→16:41)
[2021-02-16] MEDS: Ascorbic Acid 500 mg Chewable Tablet PO SCH ×2 (09:30→20:08)
[2021-02-16] MEDS: Furosemide 20 MG TAB PO SCH (09:30)
[2021-02-16] MEDS: Escitalopram Oxalate 20 mg Tablet PO SCH (09:30)
[2021-02-16] MEDS: Rifaximin 550 MG TAB PO SCH ×2 (09:30→20:07)
[2021-02-16] MEDS: Enoxaparin Sodium 40 MG/0.4 ML SYRINGE SC SCH (09:30)
[2021-02-16] MEDS: Dexamethasone 4 MG TAB PO SCH (09:30)
[2021-02-16] MEDS: Polyethylene Glycol 3350 17 GM Packet PO SCH (09:31)
[2021-02-16] MEDS: HYDROcodone/Acetaminophen 10/325 mg Tablet PO PRN ×3 (10:29→18:05)
[2021-02-16 11:31] LABS: Syphilis Antibody Nonreactive (Nonreactive); Syphilis Antibody Index 0.14 S/CO (<1.00 Non-Reactive)
[2021-02-16] MEDS: traZODone HCl 50 MG TAB PO SCH (20:08)
[2021-02-17] MEDS: HYDROcodone/Acetaminophen 10/325 mg Tablet PO PRN ×5 (00:01→17:26)
[2021-02-17] MEDS: Ondansetron PF 4 MG/2 ML Vial IVP PRN ×3 (00:05→17:26)
[2021-02-17 06:34] LABS: #Lymphocytes 0.8 thou/uL (1.20-3.40); #Monocytes 0.6 thou/uL (0.11-0.59); #Neutrophils 4.4 thou/uL (1.40-6.50); %Lymphocytes 13.8 % (21.0-51.0); %Monocytes 10.9 % (0.0-10.0); %Neutrophils 75.3 % (42.0-75.0); Hemoglobin 10.1 g/dL (12.0-16.0); Mean Corpuscular HGB CONC 32.6 g/dL (32.0-36.0); Mean Corpuscular Hemoglobin 31.9 pg (27.0-31.0); Mean Corpuscular Volume 97.9 fL (78.0-98.0); Mean Platelet Volume 6.9 fL (7.4-10.4); Platelet Count 184 thou/uL (130-400); RBC Distribution Width 14.7 % (11.5-14.5); Red Blood Cell (RBC) Count 3.17 mill/uL (4.20-5.40); White Blood Cell (WBC) Count 5.9 thou/uL (4.8-10.8)
[2021-02-17 07:01] LABS: Chloride 101 mmol/L (98-107); Sodium 129 mmol/L (136-145)
[2021-02-17 07:02] LABS: ALT (SGPT) 38 U/L (8-55); AST (SGOT) 26 U/L (5-34); Albumin 2.9 g/dL (3.5-5.0); Alkaline Phosphatase 179 U/L (40-110); Anion Gap 12 mmol/L (10-20); BUN (Urea Nitrogen) 14 mg/dL (7.0-18.7); Bilirubin, Total 1.1 mg/dL (0.2-1.2); Calc. Creatinine Clearance 145 mL/min (70-130); Calcium 8.7 mg/dL (7.8-10.44); Carbon Dioxide 21 mmol/L (22-29); Globulin 4.5 g/dL (2.4-3.5); Glucose 114 mg/dL (70-105); Magnesium 2.1 mg/dL (1.6-2.6); Phosphorus 3.8 mg/dL (2.3-4.7); Protein, Total 7.4 g/dL (6.0-8.3)
[2021-02-17] MEDS: Senokot S 8.6-50 MG TAB PO SCH ×3 (08:15→21:35)
[2021-02-17] MEDS: Ascorbic Acid 500 mg Chewable Tablet PO SCH ×2 (08:16→21:34)
[2021-02-17] MEDS: Calcium Carbonate 600 MG TAB PO SCH (08:16)
[2021-02-17] MEDS: Escitalopram Oxalate 20 mg Tablet PO SCH (08:16)
[2021-02-17] MEDS: Ferrous Sulfate 325 MG TAB PO SCH ×2 (08:16→16:50)
[2021-02-17] MEDS: Rifaximin 550 MG TAB PO SCH ×2 (08:16→21:35)
[2021-02-17] MEDS: Dexamethasone 4 MG TAB PO SCH (08:16)
[2021-02-17] MEDS: ALPRAZolam 0.5 MG TAB PO SCH ×2 (08:16→21:34)
[2021-02-17] MEDS: Furosemide 20 MG TAB PO SCH (08:17)
[2021-02-17] MEDS: busPIRone HCl 5 MG TAB PO SCH ×3 (08:18→21:36)
[2021-02-17] MEDS: Polyethylene Glycol 3350 17 GM Packet PO SCH ×2 (08:19→08:39)
[2021-02-17] MEDS: Enoxaparin Sodium 40 MG/0.4 ML SYRINGE SC SCH (08:19)
[2021-02-17] MEDS: Zinc Sulfate 220 MG CAP PO SCH (08:19)
[2021-02-17] MEDS: Spironolactone 100 MG TAB PO SCH (08:21)
[2021-02-17] MEDS ORDERED: Cosyntropin 250 MCG VIAL SLOW IVP SCH (10:15)
[2021-02-17 18:49] LABS: Creatinine, Urine 46.05 mg/dL (47-110)
[2021-02-17] MEDS: traZODone HCl 50 MG TAB PO SCH (21:34)
[2021-02-18] MEDS: HYDROcodone/Acetaminophen 10/325 mg Tablet PO PRN ×3 (03:03→14:42)
[2021-02-18] MEDS: Ondansetron PF 4 MG/2 ML Vial IVP PRN ×3 (03:09→14:44)
[2021-02-18 04:51] LABS: #Lymphocytes 0.8 thou/uL (1.20-3.40); #Monocytes 0.5 thou/uL (0.11-0.59); #Neutrophils 5.3 thou/uL (1.40-6.50); %Basophils 0.1 % (0.0-1.0); %Lymphocytes 12.5 % (21.0-51.0); %Monocytes 8.1 % (0.0-10.0); %Neutrophils 79.3 % (42.0-75.0); Hemoglobin 9.9 g/dL (12.0-16.0); Mean Corpuscular HGB CONC 32.7 g/dL (32.0-36.0); Mean Corpuscular Hemoglobin 31.7 pg (27.0-31.0); Mean Corpuscular Volume 96.8 fL (78.0-98.0); Mean Platelet Volume 7.1 fL (7.4-10.4); Platelet Count 179 thou/uL (130-400); RBC Distribution Width 15.1 % (11.5-14.5); Red Blood Cell (RBC) Count 3.14 mill/uL (4.20-5.40); White Blood Cell (WBC) Count 6.7 thou/uL (4.8-10.8)
[2021-02-18 05:14] LABS: ALT (SGPT) 34 U/L (8-55); AST (SGOT) 20 U/L (5-34); Albumin 2.8 g/dL (3.5-5.0); Alkaline Phosphatase 170 U/L (40-110); Anion Gap 12 mmol/L (10-20); BUN (Urea Nitrogen) 15 mg/dL (7.0-18.7); Bilirubin, Total 1.1 mg/dL (0.2-1.2); Calc. Creatinine Clearance 160 mL/min (70-130); Calcium 8.6 mg/dL (7.8-10.44); Carbon Dioxide 21 mmol/L (22-29); Chloride 102 mmol/L (98-107); Globulin 4.1 g/dL (2.4-3.5); Glucose 114 mg/dL (70-105); Magnesium 2.1 mg/dL (1.6-2.6); Phosphorus 3.8 mg/dL (2.3-4.7); Potassium 4.8 mmol/L (3.5-5.1); Protein, Total 6.9 g/dL (6.0-8.3); Sodium 130 mmol/L (136-145); Uric Acid 3.8 mg/dL (2.6-6.0)
[2021-02-18] MEDS: Enoxaparin Sodium 40 MG/0.4 ML SYRINGE SC SCH (08:03)
[2021-02-18] MEDS: Furosemide 20 MG TAB PO SCH (08:03)
[2021-02-18] MEDS: busPIRone HCl 5 MG TAB PO SCH ×2 (08:04→14:41)
[2021-02-18] MEDS: Calcium Carbonate 600 MG TAB PO SCH (08:04)
[2021-02-18] MEDS: Rifaximin 550 MG TAB PO SCH (08:04)
[2021-02-18] MEDS: Escitalopram Oxalate 20 mg Tablet PO SCH (08:04)
[2021-02-18] MEDS: ALPRAZolam 0.5 MG TAB PO SCH (08:04)
[2021-02-18] MEDS: Ascorbic Acid 500 mg Chewable Tablet PO SCH (08:05)
[2021-02-18] MEDS: Zinc Sulfate 220 MG CAP PO SCH (08:05)
[2021-02-18] MEDS: Senokot S 8.6-50 MG TAB PO SCH (08:06)
[2021-02-18] MEDS: Polyethylene Glycol 3350 17 GM Packet PO SCH (08:06)
[2021-02-18 08:27] VITALS: BP 99/63; TEMP 97.7
[2021-02-18] MEDS: Ferrous Sulfate 325 MG TAB PO SCH ×2 (09:02→16:14)
[2021-02-18] MEDS ORDERED: Hydrocortisone 10 mg Tablet PO SCH ×2 (14:00→15:00)
== END 2021-02-18 20:32 | DRG 871 ==
LOC: ERS 21:51 → ERHOLD 02-08 02:26 → T4-A 02-08 07:33 → OBSVTOIN 02-08 15:12
PROVIDERS: ADMIT Internal Medicine; ATTEND Family Medicine
PROC: 3E0333Z Introduction of Anti-inflammatory into Peripheral Vein, Percutaneous Approach (ICD-10-PCS; principal; 2021-02-08)
PROC: 8E0ZXY6 Isolation (ICD-10-PCS; 2021-02-08)
DX: A41.89 Other specified sepsis (principal); U07.1 COVID-19; J96.01 Acute respiratory failure with hypoxia; G92.8 Other toxic encephalopathy; N39.0 Urinary tract infection, site not specified; E87.1 Hypo-osmolality and hyponatremia; E27.40 Unspecified adrenocortical insufficiency; R18.8 Other ascites; E83.01 Wilson's disease; K72.10 Chronic hepatic failure without coma; K74.60 Unspecified cirrhosis of liver; I10 Essential (primary) hypertension; F31.9 Bipolar disorder, unspecified; F41.9 Anxiety disorder, unspecified; G62.9 Polyneuropathy, unspecified; U09.9 Post COVID-19 condition, unspecified; E55.9 Vitamin D deficiency, unspecified; G89.4 Chronic pain syndrome; T40.2X1A Poisoning by other opioids, accidental (unintentional), initial encounter; T42.4X1A Poisoning by benzodiazepines, accidental (unintentional), initial encounter; Z88.1 Allergy status to other antibiotic agents; Z88.0 Allergy status to penicillin; Z88.2 Allergy status to sulfonamides; Z79.899 Other long term (current) drug therapy; Z79.01 Long term (current) use of anticoagulants; Z90.49 Acquired absence of other specified parts of digestive tract; Z98.890 Other specified postprocedural states; W18.30XD Fall on same level, unspecified, subsequent encounter; S72.001D Fracture of unspecified part of neck of right femur, subsequent encounter for closed fracture with routine healing
CPT/HCPCS: 0240U; 36415; 71045; 71275; 76705; 80048; 80053; 80400; 81001; 81003; 81015; 82024; 82088; 82140; 82306; 82525; 82533; 82570; 82607; 82746; 83540; 83605; 83735; 83930; 83935; 84100; 84244; 84300; 84443; 84540; 84550; 84703; 85025; 85379; 85610; 85652; 85730; 86140; 86780; 86850; 86900; 86901; 87077; 87086; 87186; 87389; 94760; 96365; 96372; 96375; 96376; G0378; J0692; J0834; J1100; J1650; J1885; J1956; J2270; J2405; J2916; J3010; J3370; J7050; J8540; Q0162; U0002

== ENCOUNTER 2022-03-17 20:51 | Emergency (ER) | payer OTHER | END 2022-03-17 22:18 | disposition home or self-care (01) | LOC: ERS 20:51 | DX: T17.1XXA Foreign body in nostril, initial encounter (principal); I10 Essential (primary) hypertension | CPT/HCPCS: 30300 ==

== ENCOUNTER 2022-10-19 17:13 | Inpatient (IN) | payer MEDICARE, MEDICAID ==
[2022-10-19 17:52] LABS: #Eosinphils 0.1 thou/uL (0.0-0.7); #Monocytes 0.5 thou/uL (0.11-0.59); #Neutrophils 2.8 thou/uL (1.40-6.50); %Basophils 0.6 % (0.0-1.0); %Eosinophils 1.9 % (0.0-10.0); %Lymphocytes 25.5 % (21.0-51.0); %Monocytes 11.4 % (0.0-10.0); %Neutrophils 60.4 % (42.0-75.0); Hematocrit 34.8 % (36.0-47.0); Hemoglobin 10.9 g/dL (12.0-16.0); Mean Corpuscular HGB CONC 31.3 g/dL (32.0-36.0); Mean Corpuscular Hemoglobin 30.4 pg (27.0-31.0); Mean Corpuscular Volume 97.2 fl (78.0-98.0); Mean Platelet Volume 10.3 fL (7.4-10.4); Platelet Count 131 10x3/uL (130-400); RBC Distribution Width 15.9 % (11.5-14.5); Red Blood Cell (RBC) Count 3.58 mill/uL (4.20-5.40); White Blood Cell (WBC) Count 4.6 10x3/uL (4.8-10.8)
[2022-10-19 18:03] LABS: INR-International Normal Ratio 1.4; Prothrombin Time 17.7 sec (12.0-14.7)
[2022-10-19 18:04] LABS: PTT 34.1 sec (22.9-36.1)
[2022-10-19 18:09] LABS: BHCG - Serum Negative (NEGATIVE); Pregs Control Bar Appear? YES (CONTROL BAR)
[2022-10-19 18:10] LABS: Pregs Control Background? CLEAR/WHITE (CLR/WHITE)
[2022-10-19 18:19] LABS: ALT (SGPT) 25 U/L (8-55); AST (SGOT) 32 U/L (5-34); Albumin 2.7 g/dL (3.5-5.0); Alkaline Phosphatase 247 U/L (40-110); Anion Gap 11 mmol/L (10-20); BUN (Urea Nitrogen) 13 mg/dL (7.0-18.7); Bilirubin, Total 1.7 mg/dL (0.2-1.2); Calc. Creatinine Clearance 0 mL/min (70-130); Calcium 7.5 mg/dL (7.8-10.44); Carbon Dioxide 21 mmol/L (22-29); Chloride 109 mmol/L (98-107); Estimated GFR 118; Globulin 3.7 g/dL (2.4-3.5); Glucose 104 mg/dL (70-105); Potassium 3.6 mmol/L (3.5-5.1); Protein, Total 6.4 g/dL (6.0-8.3); Sodium 137 mmol/L (136-145); Troponin I Less than 0.010 ng/mL (< 0.028)
[2022-10-19 18:22] LABS: Acetaminophen Less than 10 mcg/mL (10.0-30.0); Alcohol Less than 10.0 mg/dL (Less than 10); Lipase 22 U/L (8-78); Magnesium 1.8 mg/dL (1.6-2.6); Salicylate Less than 8.0 mg/dL (15.0-30.0)
[2022-10-19 18:22] LABS: Bacteria/HPF None Seen HPF (None Seen); Bilirubin Negative (Negative); Blood, Urine Negative (Negative); CAUTI Indications for Culture Alt mental st,lethar; Clarity Clear (Clear); Glucose, Urine (Dipstick) Normal (Negative); Ketone, Urine Negative (Negative); Leukocyte Negative Leu/uL (Negative); Nitrite Negative (Negative); Protein, Urine (Dipstick) 10 mg/dL (Neg-Trace); RBC/HPF 0-3 HPF (0-3); Specific Gravity, Urine 1.023 (1.002-1.036); Squamous Epithelial 0-3 HPF (0-3); Urobilinogen 12 mg/dL (Less than 2); WBC/HPF 0-3 HPF (0-3)
[2022-10-19 18:26] LABS: Urine Culture Reflex No No
[2022-10-19 18:27] LABS: Amphetamine Detected (NotDetected); Barbiturates Screen Not Detected (NotDetected); Benzodiazepine Screen Detected (NotDetected); Cocaine Metabolite Screen Not Detected (NotDetected); Methadone Not Detected (NotDetected); Methamphetamine Not Detected (NotDetected); Opiate Screen Detected (NotDetected); Oxycodone Screen Not Detected (NotDetected); Phencyclidine (PCP) Not Detected (NotDetected); THC/Cannabinoid Screen Not Detected (NotDetected); Tricyclic Screen Not Detected (NotDetected)
[2022-10-19 18:59] LABS: Base Excess -2.7 mEq/L (-2.0 to +3.0); Calcium, Ionized (venous) 1.03 mmol/L (1.16-1.32); Chloride (VBG) 108 mmol/L (98-106); Hematocrit-VBG 32 % (36.0-47.0); Potassium (VBG) 3.62 mmol/L (3.70-5.30); Sodium 137.7 mmol/L (133-146); pH (venous) 7.425 (7.32-7.43)
[2022-10-19] MEDS ORDERED: Mineral Oil ENEMA PR PRN (19:55)
[2022-10-19 21:49] VITALS: BMI 26.8
[2022-10-19] MEDS ORDERED: Senokot S 8.6-50 MG TAB PO PRN (21:58)
[2022-10-19] MEDS ORDERED: Dextrose 5%-Lactated Ringers 1,000 ML IV SCH (22:00)
[2022-10-19] MEDS: Rifaximin 200 MG TAB PO SCH (22:02)
[2022-10-20 06:34] LABS: #Eosinphils 0.1 thou/uL (0.0-0.7); #Monocytes 0.3 thou/uL (0.11-0.59); #Neutrophils 1.3 thou/uL (1.40-6.50); %Basophils 0.7 % (0.0-1.0); %Eosinophils 3.1 % (0.0-10.0); %Lymphocytes 40.7 % (21.0-51.0); %Monocytes 11.7 % (0.0-10.0); %Neutrophils 43.8 % (42.0-75.0); Hematocrit 33.3 % (36.0-47.0); Hemoglobin 10.4 g/dL (12.0-16.0); Mean Corpuscular HGB CONC 31.2 g/dL (32.0-36.0); Mean Corpuscular Hemoglobin 30.7 pg (27.0-31.0); Mean Corpuscular Volume 98.2 fl (78.0-98.0); Mean Platelet Volume 10.5 fL (7.4-10.4); Platelet Count 106 10x3/uL (130-400); RBC Distribution Width 15.9 % (11.5-14.5); Red Blood Cell (RBC) Count 3.39 mill/uL (4.20-5.40); White Blood Cell (WBC) Count 2.9 10x3/uL (4.8-10.8)
[2022-10-20 07:07] LABS: ALT (SGPT) Less than 35 U/L (8-55); BUN (Urea Nitrogen) Less than 20 mg/dL (7.0-18.7); Glucose 65 mg/dL (70-105)
[2022-10-20] MEDS: Acetaminophen 325 MG TAB PO PRN ×2 (07:24→12:29)
[2022-10-20 07:29] LABS: Albumin 2.4 g/dL (3.5-5.0)
[2022-10-20 07:30] LABS: Chloride 114 mmol/L (98-107); Potassium 3.7 mmol/L (3.5-5.1); Sodium 137 mmol/L (136-145)
[2022-10-20 07:31] LABS: Calcium 7.5 mg/dL (7.8-10.44)
[2022-10-20 07:32] LABS: Globulin 3.3 g/dL (2.4-3.5); Protein, Total 5.7 g/dL (6.0-8.3)
[2022-10-20 07:33] LABS: Anion Gap 11 mmol/L (10-20); Bilirubin, Total 1.2 mg/dL (0.2-1.2)
[2022-10-20 07:34] LABS: Alkaline Phosphatase 216 U/L (40-110)
[2022-10-20 07:35] LABS: Calc. Creatinine Clearance 185 mL/min (70-130); Estimated GFR 124
[2022-10-20 07:36] LABS: AST (SGOT) 31 U/L (5-34)
[2022-10-20] MEDS: Spironolactone 100 MG TAB PO SCH (08:23)
[2022-10-20] MEDS: Rifaximin 200 MG TAB PO SCH ×2 (08:23→19:34)
[2022-10-20] MEDS: Furosemide 40 MG TAB PO SCH (08:23)
[2022-10-20] MEDS: Thiamine 100 MG TAB PO SCH (08:23)
[2022-10-20 08:52] LABS: Carbon Dioxide 16 mmol/L (22-29)
[2022-10-20] MEDS ORDERED: ALPRAZolam 0.5 MG TAB PO PRN (12:03)
[2022-10-21] MEDS ORDERED: Gabapentin 100 MG CAP PO SCH (09:00)
[2022-10-21] MEDS: Spironolactone 100 MG TAB PO SCH (10:26)
[2022-10-21] MEDS: Thiamine 100 MG TAB PO SCH (10:26)
[2022-10-21] MEDS: Rifaximin 200 MG TAB PO SCH ×2 (10:26→20:45)
[2022-10-21] MEDS: Furosemide 40 MG TAB PO SCH (10:27)
[2022-10-21] MEDS: Gabapentin 300 MG CAP PO SCH ×4 (10:27→20:46)
[2022-10-21] MEDS: Ondansetron ODT 4 MG TAB PO PRN ×2 (13:10→22:08)
[2022-10-21] MEDS: HYDROcodone/Acetaminophen 7.5/325 mg Tablet PO SCH ×2 (14:17→22:08)
[2022-10-22] MEDS: HYDROcodone/Acetaminophen 7.5/325 mg Tablet PO SCH ×2 (05:42→12:42)
[2022-10-22 07:45] LABS: #Basophils 0.1 thou/uL (0.0-0.2); #Eosinphils 0.2 thou/uL (0.0-0.7); #Monocytes 0.7 thou/uL (0.11-0.59); #Neutrophils 4.3 thou/uL (1.40-6.50); %Basophils 0.7 % (0.0-1.0); %Eosinophils 2.4 % (0.0-10.0); %Monocytes 9.6 % (0.0-10.0); %Neutrophils 63.2 % (42.0-75.0); Hematocrit 37.9 % (36.0-47.0); Hemoglobin 12.2 g/dL (12.0-16.0); Mean Corpuscular HGB CONC 32.2 g/dL (32.0-36.0); Mean Corpuscular Hemoglobin 30.7 pg (27.0-31.0); Mean Corpuscular Volume 95.2 fl (78.0-98.0); Mean Platelet Volume 10.5 fL (7.4-10.4); Platelet Count 172 10x3/uL (130-400); RBC Distribution Width 15.6 % (11.5-14.5); Red Blood Cell (RBC) Count 3.98 mill/uL (4.20-5.40); White Blood Cell (WBC) Count 6.8 10x3/uL (4.8-10.8)
[2022-10-22 08:24] LABS: Anion Gap 8 mmol/L (10-20); BUN (Urea Nitrogen) 8 mg/dL (7.0-18.7); Calc. Creatinine Clearance 119 mL/min (70-130); Calcium 8.2 mg/dL (7.8-10.44); Carbon Dioxide 26 mmol/L (22-29); Chloride 104 mmol/L (98-107); Estimated GFR 103; Glucose 93 mg/dL (70-105); Potassium 4.4 mmol/L (3.5-5.1); Sodium 134 mmol/L (136-145)
[2022-10-22] MEDS: Gabapentin 300 MG CAP PO SCH ×4 (09:23→18:41)
[2022-10-22] MEDS: Furosemide 40 MG TAB PO SCH (09:24)
[2022-10-22] MEDS: Ondansetron ODT 4 MG TAB PO PRN ×2 (09:34→18:37)
[2022-10-22] MEDS: Spironolactone 100 MG TAB PO SCH (11:29)
[2022-10-22] MEDS: Rifaximin 200 MG TAB PO SCH (11:29)
[2022-10-22] MEDS: Thiamine 100 MG TAB PO SCH (11:29)
[2022-10-22 16:12] VITALS: BP 103/65; TEMP 98.2
== END 2022-10-22 20:45 | disposition home or self-care (01) | DRG 441 ==
LOC: ERS 17:13 → SURG B 20:57
PROVIDERS: ADMIT Student in an Organized Health Care Education/Training Program; ATTEND Internal Medicine
PROC: 0T9B70Z Drainage of Bladder with Drainage Device, Via Natural or Artificial Opening (ICD-10-PCS; principal; 2022-10-19)
PROC: 4A043R1 Measurement of Venous Saturation, Peripheral, Percutaneous Approach (ICD-10-PCS; 2022-10-19)
DX: K76.82 Hepatic encephalopathy (principal); G92.8 Other toxic encephalopathy; E83.01 Wilson's disease; K74.60 Unspecified cirrhosis of liver; I10 Essential (primary) hypertension; D64.9 Anemia, unspecified; Z98.890 Other specified postprocedural states; Z79.899 Other long term (current) drug therapy; Z79.01 Long term (current) use of anticoagulants; Z91.048 Other nonmedicinal substance allergy status; Z88.1 Allergy status to other antibiotic agents; Z88.0 Allergy status to penicillin; Z88.2 Allergy status to sulfonamides; Z86.16 Personal history of COVID-19; Z98.84 Bariatric surgery status; F15.10 Other stimulant abuse, uncomplicated; F11.10 Opioid abuse, uncomplicated; F19.10 Other psychoactive substance abuse, uncomplicated; Z91.148 Patient's other noncompliance with medication regimen for other reason; K76.0 Fatty (change of) liver, not elsewhere classified; F31.9 Bipolar disorder, unspecified
CPT/HCPCS: 36415; 51701; 70450; 71045; 80048; 80053; 80306; 80307; 81001; 82140; 82805; 83605; 83690; 83735; 84484; 84703; 85025; 85610; 85730; 93005; 94760; 96360; 96361; Q0162

== ENCOUNTER 2022-10-23 11:47 | Inpatient (IN) | payer MEDICARE, MEDICAID ==
[2022-10-23 12:59] LABS: #Monocytes 0.4 thou/uL (0.11-0.59); #Neutrophils 4.4 thou/uL (1.40-6.50); %Basophils 0.7 % (0.0-1.0); %Eosinophils 0.7 % (0.0-10.0); %Lymphocytes 17.4 % (21.0-51.0); %Monocytes 7.3 % (0.0-10.0); %Neutrophils 73.7 % (42.0-75.0); Hematocrit 41.3 % (36.0-47.0); Hemoglobin 13.4 g/dL (12.0-16.0); Mean Corpuscular HGB CONC 32.4 g/dL (32.0-36.0); Mean Corpuscular Hemoglobin 30.6 pg (27.0-31.0); Mean Corpuscular Volume 94.3 fl (78.0-98.0); Mean Platelet Volume 10.6 fL (7.4-10.4); Platelet Count 173 10x3/uL (130-400); RBC Distribution Width 15.7 % (11.5-14.5); Red Blood Cell (RBC) Count 4.38 mill/uL (4.20-5.40)
[2022-10-23 13:07] LABS: BHCG - Serum Negative (NEGATIVE); Pregs Control Background? CLEAR/WHITE (CLR/WHITE); Pregs Control Bar Appear? YES (CONTROL BAR)
[2022-10-23 13:20] LABS: ALT (SGPT) 25 U/L (8-55); AST (SGOT) 28 U/L (5-34); Albumin 3.1 g/dL (3.5-5.0); Alkaline Phosphatase 276 U/L (40-110); Anion Gap 11 mmol/L (10-20); BUN (Urea Nitrogen) 15 mg/dL (7.0-18.7); Bilirubin, Total 1.7 mg/dL (0.2-1.2); Calc. Creatinine Clearance 0 mL/min (70-130); Calcium 8.3 mg/dL (7.8-10.44); Carbon Dioxide 24 mmol/L (22-29); Chloride 106 mmol/L (98-107); Estimated GFR 103; Globulin 4.6 g/dL (2.4-3.5); Glucose 127 mg/dL (70-105); Potassium 4.3 mmol/L (3.5-5.1); Protein, Total 7.7 g/dL (6.0-8.3); Sodium 137 mmol/L (136-145)
[2022-10-23 13:22] LABS: Acetaminophen Less than 10 mcg/mL (10.0-30.0); Alcohol Less than 10.0 mg/dL (Less than 10); Salicylate Less than 8.0 mg/dL (15.0-30.0); Troponin I Less than 0.010 ng/mL (< 0.028)
[2022-10-23] MEDS ORDERED: Calcium Carbonate 500 MG ChewTAB PO PRN (13:46)
[2022-10-23] MEDS ORDERED: Senokot S 8.6-50 MG TAB PO PRN (13:46)
[2022-10-23 14:35] LABS: Bilirubin Negative (Negative); Blood, Urine Negative (Negative); CAUTI Indications for Culture Alt mental st,lethar; Clarity Turbid (Clear); Glucose, Urine (Dipstick) Normal (Negative); Ketone, Urine 20 mg/dL (Negative); Leukocyte 500 Leu/uL (Negative); Nitrite 2+ (Negative); Protein, Urine (Dipstick) 20 mg/dL (Neg-Trace); RBC/HPF 0-3 HPF (0-3); Specific Gravity, Urine 1.025 (1.002-1.036); Squamous Epithelial 0-3 HPF (0-3); WBC/HPF Greater than 50 HPF (0-3)
[2022-10-23 14:37] LABS: Bacteria/HPF 1+ HPF (None Seen)
[2022-10-23 14:38] LABS: Urine Culture Reflex Yes Yes
[2022-10-23 14:40] LABS: Amphetamine Not Detected (NotDetected); Barbiturates Screen Not Detected (NotDetected); Benzodiazepine Screen Detected (NotDetected); Cocaine Metabolite Screen Not Detected (NotDetected); Methadone Not Detected (NotDetected); Methamphetamine Not Detected (NotDetected); Opiate Screen Detected (NotDetected); Oxycodone Screen Not Detected (NotDetected); Phencyclidine (PCP) Not Detected (NotDetected); THC/Cannabinoid Screen Not Detected (NotDetected); Tricyclic Screen Not Detected (NotDetected)
[2022-10-23] MEDS ORDERED: LevoFLOXacin 750 mg/D5W 750 MG in Premix Bag 1 BAG IVPB SCH (15:30)
[2022-10-23] MEDS: Sodium Chloride 0.9% 1,000 ML IV SCH (16:36)
[2022-10-23] MEDS ORDERED: Lactulose 10 GM/15 ML Oral Solution PR SCH (17:00)
[2022-10-23] MEDS ORDERED: Famotidine/PF 20 mg/2ml Vial SLOW IVP SCH (21:00)
[2022-10-23] MEDS: Rifaximin 200 MG TAB PO SCH (21:44)
[2022-10-23] MEDS: Apixaban 5 MG TAB PO SCH (21:44)
[2022-10-24] MEDS ORDERED: traMADol HCl 50 MG TAB PO SCH (04:30)
[2022-10-24] MEDS: Acetaminophen 325 MG TAB PO PRN ×2 (04:42→10:06)
[2022-10-24] MEDS: Sodium Chloride 0.9% 1,000 ML IV SCH (04:42)
[2022-10-24 05:45] LABS: #Eosinphils 0.1 thou/uL (0.0-0.7); #Monocytes 0.5 thou/uL (0.11-0.59); #Neutrophils 4.5 thou/uL (1.40-6.50); %Basophils 0.3 % (0.0-1.0); %Eosinophils 0.8 % (0.0-10.0); %Lymphocytes 18.7 % (21.0-51.0); %Monocytes 8.5 % (0.0-10.0); %Neutrophils 71.4 % (42.0-75.0); Hematocrit 39.3 % (36.0-47.0); Hemoglobin 12.2 g/dL (12.0-16.0); Mean Corpuscular Hemoglobin 30.9 pg (27.0-31.0); Mean Platelet Volume 10.1 fL (7.4-10.4); Platelet Count 165 10x3/uL (130-400); RBC Distribution Width 15.8 % (11.5-14.5); Red Blood Cell (RBC) Count 3.95 mill/uL (4.20-5.40); White Blood Cell (WBC) Count 6.3 10x3/uL (4.8-10.8)
[2022-10-24 05:49] LABS: Mean Corpuscular Volume 99.5 fl (78.0-98.0)
[2022-10-24 06:01] LABS: ALT (SGPT) 22 U/L (8-55); AST (SGOT) 25 U/L (5-34); Albumin 2.9 g/dL (3.5-5.0); Alkaline Phosphatase 236 U/L (40-110); Anion Gap 12 mmol/L (10-20); BUN (Urea Nitrogen) 17 mg/dL (7.0-18.7); Bilirubin, Total 1.5 mg/dL (0.2-1.2); Calc. Creatinine Clearance 133 mL/min (70-130); Calcium 8.1 mg/dL (7.8-10.44); Carbon Dioxide 21 mmol/L (22-29); Chloride 109 mmol/L (98-107); Estimated GFR 114; Glucose 93 mg/dL (70-105); Magnesium 2.4 mg/dL (1.6-2.6); Potassium 3.9 mmol/L (3.5-5.1); Protein, Total 6.9 g/dL (6.0-8.3); Sodium 138 mmol/L (136-145)
[2022-10-24] MEDS: LevoFLOXacin 750 mg/D5W 750 MG in Premix Bag 1 BAG IVPB SCH (08:34)
[2022-10-24] MEDS: Hydrocortisone 10 mg Tablet PO SCH ×2 (08:35→15:44)
[2022-10-24] MEDS: Apixaban 5 MG TAB PO SCH ×2 (08:35→20:23)
[2022-10-24] MEDS: Rifaximin 200 MG TAB PO SCH ×2 (08:35→20:23)
[2022-10-24] MEDS: Thiamine 100 MG TAB PO SCH (08:35)
[2022-10-24] MEDS: Naloxegol 12.5 MG TAB PO SCH (08:35)
[2022-10-24 12:06] VITALS: BMI 26.4
[2022-10-24] MEDS: Gabapentin 300 MG CAP PO SCH ×2 (17:45→20:23)
[2022-10-24] MEDS: HYDROcodone/Acetaminophen 7.5/325 mg Tablet PO PRN (17:46)
[2022-10-24] MEDS: Ondansetron PF 4 MG/2 ML Vial IVP PRN (17:49)
[2022-10-24] MEDS ORDERED: traZODone HCl 50 MG TAB PO SCH (21:30)
[2022-10-25] MEDS: HYDROcodone/Acetaminophen 7.5/325 mg Tablet PO PRN ×4 (01:56→23:44)
[2022-10-25] MEDS: Melatonin 3 MG TAB PO PRN ×3 (01:57→21:03)
[2022-10-25] MEDS: Ondansetron PF 4 MG/2 ML Vial IVP PRN ×3 (02:06→23:45)
[2022-10-25] MEDS: Hydrocortisone 10 mg Tablet PO SCH ×2 (09:06→13:19)
[2022-10-25] MEDS: Thiamine 100 MG TAB PO SCH (09:06)
[2022-10-25] MEDS: Naloxegol 12.5 MG TAB PO SCH (09:07)
[2022-10-25] MEDS: Rifaximin 200 MG TAB PO SCH ×2 (09:07→21:01)
[2022-10-25] MEDS: Apixaban 5 MG TAB PO SCH ×2 (09:07→20:15)
[2022-10-25] MEDS: Gabapentin 300 MG CAP PO SCH ×4 (09:07→20:15)
[2022-10-25] MEDS: LevoFLOXacin 750 mg/D5W 750 MG in Premix Bag 1 BAG IVPB SCH (09:12)
[2022-10-25] MEDS: Acetaminophen 325 MG TAB PO PRN (13:19)
[2022-10-25] MEDS ORDERED: traMADol HCl 50 MG TAB PO SCH (14:45)
[2022-10-25] MEDS ORDERED: traZODone HCl 50 MG TAB PO SCH (21:00)
[2022-10-26 07:53] VITALS: BP 116/78; TEMP 97.4
[2022-10-26] MEDS: Thiamine 100 MG TAB PO SCH (08:51)
[2022-10-26] MEDS: Apixaban 5 MG TAB PO SCH (08:51)
[2022-10-26] MEDS: LevoFLOXacin 750 mg/D5W 750 MG in Premix Bag 1 BAG IVPB SCH (08:51)
[2022-10-26] MEDS: Gabapentin 300 MG CAP PO SCH ×3 (08:51→16:17)
[2022-10-26] MEDS: HYDROcodone/Acetaminophen 7.5/325 mg Tablet PO PRN ×2 (08:52→16:16)
[2022-10-26] MEDS: Rifaximin 200 MG TAB PO SCH (08:55)
[2022-10-26] MEDS: Hydrocortisone 10 mg Tablet PO SCH ×2 (08:55→13:32)
[2022-10-26] MEDS: Acetaminophen 325 MG TAB PO PRN (10:25)
[2022-10-27] MEDS ORDERED: Naloxegol 12.5 MG TAB PO SCH (07:30)
== END 2022-10-26 19:29 | disposition home or self-care (01) | DRG 442 ==
LOC: ERS 11:47 → SUATTDRO 11:47 → ERHOLD 13:50 → T4-B 15:35
PROVIDERS: ADMIT Internal Medicine; ATTEND Internal Medicine
DX: K76.82 Hepatic encephalopathy (principal); N30.00 Acute cystitis without hematuria; F39 Unspecified mood [affective] disorder; K74.60 Unspecified cirrhosis of liver; G89.4 Chronic pain syndrome; K76.0 Fatty (change of) liver, not elsewhere classified; I95.0 Idiopathic hypotension; Z88.0 Allergy status to penicillin; Z88.2 Allergy status to sulfonamides; Z88.1 Allergy status to other antibiotic agents; Z79.01 Long term (current) use of anticoagulants; Z91.048 Other nonmedicinal substance allergy status; Z91.148 Patient's other noncompliance with medication regimen for other reason; Z99.3 Dependence on wheelchair; Z79.899 Other long term (current) drug therapy; Z86.711 Personal history of pulmonary embolism
CPT/HCPCS: 36415; 36416; 51701; 70450; 80053; 80306; 80307; 81001; 82140; 83735; 84443; 84484; 84703; 85025; 87077; 87086; 87186; 93005; J1956; J2405; J7050

== ENCOUNTER 2023-01-23 01:35 | Inpatient (IN) | payer MEDICARE, MEDICAID ==
[2023-01-23 02:15] LABS: #Basophils 0.1 thou/uL (0.0-0.2); #Monocytes 0.4 thou/uL (0.11-0.59); #Neutrophils 3.3 thou/uL (1.40-6.50); %Eosinophils 0.8 % (0.0-10.0); %Lymphocytes 20.1 % (21.0-51.0); %Monocytes 8.6 % (0.0-10.0); %Neutrophils 69.1 % (42.0-75.0); Hematocrit 35.2 % (36.0-47.0); Mean Corpuscular HGB CONC 31.3 g/dL (32.0-36.0); Mean Corpuscular Hemoglobin 28.7 pg (27.0-31.0); Mean Corpuscular Volume 91.9 fl (78.0-98.0); Mean Platelet Volume 10.3 fL (7.4-10.4); Platelet Count 169 10x3/uL (130-400); RBC Distribution Width 16.3 % (11.5-14.5); Red Blood Cell (RBC) Count 3.83 mill/uL (4.20-5.40); White Blood Cell (WBC) Count 4.8 10x3/uL (4.8-10.8)
[2023-01-23 02:22] LABS: BHCG - Serum Negative (NEGATIVE); Pregs Control Background? CLEAR/WHITE (CLR/WHITE); Pregs Control Bar Appear? YES (CONTROL BAR)
[2023-01-23 02:29] LABS: INR-International Normal Ratio 1.1; PTT 27.7 sec (22.9-36.1); Prothrombin Time 14.9 sec (12.0-14.7)
[2023-01-23 02:31] LABS: D-Dimer Test 1.31 *mcg/mL (0.27-0.43)
[2023-01-23 02:37] LABS: ALT (SGPT) 25 U/L (8-55); AST (SGOT) 31 U/L (5-34); Albumin 3.2 g/dL (3.5-5.0); Alkaline Phosphatase 162 U/L (40-110); Anion Gap 15 mmol/L (10-20); BUN (Urea Nitrogen) 10 mg/dL (7.0-18.7); Bilirubin, Total 1.3 mg/dL (0.2-1.2); Calc. Creatinine Clearance 0 mL/min (70-130); Carbon Dioxide 20 mmol/L (22-29); Chloride 108 mmol/L (98-107); Estimated GFR 118; Globulin 4.2 g/dL (2.4-3.5); Glucose 126 mg/dL (70-105); Lipase 24 U/L (8-78); Magnesium 1.9 mg/dL (1.6-2.6); Potassium 3.6 mmol/L (3.5-5.1); Protein, Total 7.4 g/dL (6.0-8.3); Sodium 139 mmol/L (136-145)
[2023-01-23 02:47] LABS: Troponin I Less than 0.010 ng/mL (< 0.028)
[2023-01-23] MEDS ORDERED: Diazepam 10 MG/2 ML SYRINGE ONE (03:00)
[2023-01-23] MEDS ORDERED: Morphine 4 MG/ML VIAL ONE ×2 (03:00→06:28)
[2023-01-23] MEDS ORDERED: Orphenadrine Citrate 60 MG/2 ML VIAL ONE (04:28)
[2023-01-23] MEDS ORDERED: Lidocaine 2% Viscous 100 ML BOTTLE SSW SCH (05:15)
[2023-01-23 05:30] LABS: Lactic Acid 3.2 mmol/L (0.5-2.2)
[2023-01-23 08:02] VITALS: BMI 25.0
[2023-01-23] MEDS ORDERED: Bisacodyl 5 MG TAB PO PRN (08:16)
[2023-01-23] MEDS ORDERED: Senokot S 8.6-50 MG TAB PO PRN (08:16)
[2023-01-23] MEDS ORDERED: Thiamine 100 MG TAB PO SCH (09:00)
[2023-01-23] MEDS ORDERED: Rifaximin 550 MG TAB PO SCH (09:00)
[2023-01-23] MEDS ORDERED: Pantoprazole 40 MG VIAL IVP SCH (09:00)
[2023-01-23] MEDS ORDERED: Lidocaine 1% (PF) 30 ML VIAL ONE (09:33)
[2023-01-23] MEDS ORDERED: Sodium Bicarb 50 MEQ/50 ML Abboject 8.4% SYRINGE ONE (09:46)
[2023-01-23] MEDS: ALPRAZolam 0.5 MG TAB PO PRN ×2 (09:57→23:42)
[2023-01-23] MEDS: Dexamethasone 10 MG/ML VIAL SLOW IVP SCH (11:11)
[2023-01-23] MEDS: cefTRIAXone\\ROCEPHIN 2 GM in Sodium Chloride 0.9% 100 ML IVPB SCH (11:14)
[2023-01-23] MEDS ORDERED: Acetaminophen 650 MG Suppository PR PRN (11:30)
[2023-01-23] MEDS ORDERED: Lactated Ringer's 1,000 ML IV SCH (11:45)
[2023-01-23] MEDS ORDERED: Iopamidol 370 76% 100 ML VIAL ONE (11:50)
[2023-01-23] MEDS ORDERED: MD-Gastroview 120 ML BOT ONE (12:09)
[2023-01-23] MEDS: Morphine 2 MG/ML VIAL SLOW IVP PRN ×2 (12:26→21:18)
[2023-01-23 14:43] LABS: Bacteria/HPF None Seen HPF (None Seen); Bilirubin 1+ (Negative); Blood, Urine Negative (Negative); CAUTI Indications for Culture Fever or rigors; Clarity Clear (Clear); Glucose, Urine (Dipstick) Normal (Negative); Ketone, Urine 20 mg/dL (Negative); Leukocyte Negative Leu/uL (Negative); Nitrite Negative (Negative); Protein, Urine (Dipstick) 20 mg/dL (Neg-Trace); RBC/HPF 0-3 HPF (0-3); Squamous Epithelial 0-3 HPF (0-3); Urobilinogen Greater than 12 mg/dL (Less than 2); WBC/HPF 0-3 HPF (0-3); pH, Urine 6.5 (5.0-9.0)
[2023-01-23 14:46] LABS: Urine Culture Reflex No No
[2023-01-23] MEDS: Ascorbic Acid 500 mg Chewable Tablet PO SCH ×2 (15:46→21:18)
[2023-01-23] MEDS: Rifaximin 200 MG TAB PO SCH ×2 (15:47→21:18)
[2023-01-23] MEDS: Potassium Chloride 10 MEQ TAB PO SCH (15:47)
[2023-01-23] MEDS: Calcium Carbonate 600 MG TAB PO SCH (15:47)
[2023-01-23] MEDS ORDERED: Morphine 4 MG/ML VIAL SLOW IVP PRN (17:19)
[2023-01-23] MEDS ORDERED: Ketorolac Tromethamine 30 MG/ML VIAL IVP PRN (17:19)
[2023-01-23] MEDS ORDERED: FLU VACC QS2023-24(6MOS UP)/PF 60 MCG/0.5 ML SYRINGE IM ONE (18:15)
[2023-01-23] MEDS: Multivitamins, Adult 10 ML, Folic Acid 1 MG, Thiamine HCl 100 MG in Dextrose 5 %-0.45 %... IV SCH (18:48)
[2023-01-23] MEDS: Ketorolac Tromethamine 30 MG/ML VIAL IVP SCH ×2 (18:48→23:42)
[2023-01-23] MEDS: Lactated Ringer's 1,000 ML IV SCH (18:53)
[2023-01-23] MEDS ORDERED: Magnesium Oxide 400 MG TAB PO SCH (21:00)
[2023-01-23] MEDS: Pantoprazole 40 MG VIAL IVP SCH (21:19)
[2023-01-23] MEDS ORDERED: Ondansetron PF 4 MG/2 ML Vial IVP PRN (22:50)
[2023-01-24] MEDS: Lactated Ringer's 1,000 ML IV SCH (01:14)
[2023-01-24] MEDS: Ketorolac Tromethamine 30 MG/ML VIAL IVP SCH ×2 (05:10→14:33)
[2023-01-24 06:18] LABS: #Monocytes 0.3 thou/uL (0.11-0.59); %Lymphocytes 8.8 % (21.0-51.0); %Monocytes 7.5 % (0.0-10.0); %Neutrophils 83.4 % (42.0-75.0); Hematocrit 30.1 % (36.0-47.0); Hemoglobin 9.4 g/dL (12.0-16.0); Mean Corpuscular HGB CONC 31.2 g/dL (32.0-36.0); Mean Corpuscular Hemoglobin 28.6 pg (27.0-31.0); Mean Corpuscular Volume 91.5 fl (78.0-98.0); Mean Platelet Volume 10.6 fL (7.4-10.4); Platelet Count 113 10x3/uL (130-400); RBC Distribution Width 15.7 % (11.5-14.5); Red Blood Cell (RBC) Count 3.29 mill/uL (4.20-5.40); White Blood Cell (WBC) Count 3.6 10x3/uL (4.8-10.8)
[2023-01-24 06:40] LABS: Phosphorus 2.4 mg/dL (2.3-4.7)
[2023-01-24 06:42] LABS: Anion Gap 10 mmol/L (10-20); BUN (Urea Nitrogen) 7 mg/dL (7.0-18.7); Calc. Creatinine Clearance 151 mL/min (70-130); Carbon Dioxide 22 mmol/L (22-29); Chloride 106 mmol/L (98-107); Estimated GFR 119; Glucose 117 mg/dL (70-105); Magnesium 1.9 mg/dL (1.6-2.6); Potassium 3.9 mmol/L (3.5-5.1); Sodium 134 mmol/L (136-145)
[2023-01-24 08:05] LABS: Anisocytosis MODERATE=16-30 cells HPF (0-5); CellaVision Operator ID LAB.CMB; Macrocytosis SLIGHT = 6-15 cells HPF (0-5); Platelet Adequacy Comment Platelets Decreased; Polychromasia SLIGHT = 2-3 cells HPF (0-2); RBC Morphology Within Normal Limits
[2023-01-24] MEDS: Calcium Carbonate 600 MG TAB PO SCH (09:14)
[2023-01-24] MEDS: Ascorbic Acid 500 mg Chewable Tablet PO SCH ×2 (09:14→21:32)
[2023-01-24] MEDS: Pantoprazole 40 MG VIAL IVP SCH ×2 (09:15→21:32)
[2023-01-24] MEDS: Potassium Chloride 10 MEQ TAB PO SCH (09:15)
[2023-01-24] MEDS: Rifaximin 200 MG TAB PO SCH ×2 (09:15→21:30)
[2023-01-24] MEDS ORDERED: PROPOFOL 20 ML ONE (09:19)
[2023-01-24] MEDS ORDERED: Fentanyl 250 MCG/5 ML VIAL ONE (09:19)
[2023-01-24] MEDS ORDERED: Lidocaine 2% PF 5 ML VIAL ONE (09:20)
[2023-01-24] MEDS ORDERED: Ketamine In 0.9 % NaCl 50 MG/5 ML SYRINGE ONE (09:22)
[2023-01-24] MEDS ORDERED: Ketorolac Tromethamine 30 MG/ML VIAL ONE (09:22)
[2023-01-24] MEDS ORDERED: Sodium Chloride 0.9% 100 ML ONE ×2 (09:23→09:31)
[2023-01-24] MEDS ORDERED: Dexmedetomidine 200 MCG/2 ML VIAL ONE (09:23)
[2023-01-24] MEDS ORDERED: Hydrocortisone Sod Succ/PF 100 mg/2 ml Vial ONE (09:28)
[2023-01-24] MEDS ORDERED: cefTRIAXone (ROCEPHIN) 2 GM VIAL ONE (09:31)
[2023-01-24] MEDS ORDERED: Midazolam HCl 2 mg/2 ml Vial ONE (09:58)
[2023-01-24] MEDS ORDERED: ePHEDrine Sulfate 50 MG/10 ML VIAL ONE ×2 (10:21→10:45)
[2023-01-24] MEDS ORDERED: Lidocaine 1% PF 5 ML VIAL ONE (10:21)
[2023-01-24] MEDS ORDERED: PROPOFOL 200 MG/20 ML VIAL ONE (10:21)
[2023-01-24] MEDS ORDERED: Rocuronium Bromide 10 MG/ML (10ML VIAL) ONE (10:21)
[2023-01-24] MEDS ORDERED: Ondansetron PF 4 MG/2 ML Vial ONE ×2 (10:21→10:40)
[2023-01-24] MEDS ORDERED: SUGAMMADEX SODIUM 200 MG/2 ML VIAL ONE (12:21)
[2023-01-24] MEDS ORDERED: Multivitamins, Adult 10 ML, Folic Acid 1 MG, Thiamine HCl 100 MG in Dextrose 5 %-0.45 %... IV SCH (12:30)
[2023-01-24] MEDS ORDERED: HYDROmorphone 2 MG/ML VIAL SLOW IVP PRN (12:36)
[2023-01-24] MEDS ORDERED: Ondansetron HCl/PF 4 MG/2 ML Vial IVP PRN (12:36)
[2023-01-24] MEDS ORDERED: Promethazine HCl 25 MG/ML VIAL IM PRN ×3 (12:36→15:40)
[2023-01-24] MEDS ORDERED: Gabapentin 300 MG CAP PO SCH (13:00)
[2023-01-24] MEDS ORDERED: Naloxone HCl 0.4 mg/ml Vial IV PRN ×2 (13:05→15:40)
[2023-01-24] MEDS ORDERED: Ondansetron PF 4 MG/2 ML Vial IVP PRN ×2 (13:05→15:40)
[2023-01-24] MEDS ORDERED: diphenhydrAMINE 50 MG/ML VIAL IM PRN ×2 (13:05→15:40)
[2023-01-24] MEDS ORDERED: FENTANYL 500 MCG/10 ML VIAL 2,000 MCG in Sodium Chloride 0.9% 60 ML IV PRN (13:05)
[2023-01-24] MEDS ORDERED: diphenhydrAMINE 50 MG/ML VIAL IVP PRN ×2 (13:05→15:40)
[2023-01-24] MEDS ORDERED: diphenhydrAMINE 25 MG CAP PO PRN ×2 (13:05→15:40)
[2023-01-24] MEDS ORDERED: fentaNYL 50 mcg/mL 1 mL Vial ONE (13:11)
[2023-01-24] MEDS ORDERED: HYDROmorphone 2 MG/ML VIAL ONE (13:12)
[2023-01-24] MEDS ORDERED: Communication Order-Pharmacy FS SCH ×2 (13:15→15:45)
[2023-01-24] MEDS ORDERED: Hydrocortisone 10 mg Tablet PO SCH (14:00)
[2023-01-24] MEDS: Escitalopram Oxalate 20 mg Tablet PO SCH (14:33)
[2023-01-24] MEDS: cefTRIAXone\\ROCEPHIN 2 GM in Sodium Chloride 0.9% 100 ML IVPB SCH (14:33)
[2023-01-24] MEDS: Dexamethasone 10 MG/ML VIAL SLOW IVP SCH (15:16)
[2023-01-24] MEDS: NS 0.9% w/ 20 MEQ KCL 1,000 ML/1,000 ML BAG IV SCH (15:16)
[2023-01-24] MEDS: busPIRone HCl 5 MG TAB PO SCH ×2 (15:16→21:32)
[2023-01-24] MEDS ORDERED: ALPRAZolam 0.5 MG TAB PO PRN (16:06)
[2023-01-24] MEDS: Multivitamins, Adult 10 ML, Folic Acid 1 MG, Thiamine HCl 100 MG in Dextrose 5 %-0.45 %... IV SCH (17:59)
[2023-01-24] MEDS ORDERED: Ketorolac Tromethamine 30 MG/ML VIAL IVP SCH (18:00)
[2023-01-24] MEDS: traZODone HCl 50 MG TAB PO SCH (21:34)
[2023-01-25] MEDS ORDERED: Ketorolac Tromethamine 30 MG/ML VIAL IVP SCH (01:30)
[2023-01-25] MEDS: NS 0.9% w/ 20 MEQ KCL 1,000 ML/1,000 ML BAG IV SCH ×4 (01:42→16:16)
[2023-01-25 05:34] LABS: #Monocytes 0.4 thou/uL (0.11-0.59); #Neutrophils 7.3 thou/uL (1.40-6.50); %Lymphocytes 2.9 % (21.0-51.0); %Monocytes 5.3 % (0.0-10.0); %Neutrophils 91.4 % (42.0-75.0); Hematocrit 31.5 % (36.0-47.0); Hemoglobin 9.5 g/dL (12.0-16.0); Mean Corpuscular HGB CONC 30.2 g/dL (32.0-36.0); Mean Corpuscular Hemoglobin 28.5 pg (27.0-31.0); Mean Platelet Volume 10.7 fL (7.4-10.4); Platelet Count 103 10x3/uL (130-400); RBC Distribution Width 15.9 % (11.5-14.5); Red Blood Cell (RBC) Count 3.33 mill/uL (4.20-5.40); White Blood Cell (WBC) Count 7.9 10x3/uL (4.8-10.8)
[2023-01-25 05:37] LABS: Mean Corpuscular Volume 94.6 fl (78.0-98.0)
[2023-01-25 05:55] LABS: Anion Gap 9 mmol/L (10-20); BUN (Urea Nitrogen) 9 mg/dL (7.0-18.7); Calc. Creatinine Clearance 151 mL/min (70-130); Calcium 7.3 mg/dL (7.8-10.44); Carbon Dioxide 18 mmol/L (22-29); Chloride 107 mmol/L (98-107); Estimated GFR 119; Glucose 159 mg/dL (70-105); Potassium 4.4 mmol/L (3.5-5.1); Sodium 130 mmol/L (136-145)
[2023-01-25] MEDS ORDERED: Dextroamphetamine/Amphetamine [Adderall Xr 30 Mg Capsule] 30 MG PO SCH (09:00)
[2023-01-25] MEDS: Rifaximin 200 MG TAB PO SCH ×2 (09:10→21:06)
[2023-01-25] MEDS: busPIRone HCl 5 MG TAB PO SCH ×3 (09:10→21:04)
[2023-01-25] MEDS: cefTRIAXone\\ROCEPHIN 2 GM in Sodium Chloride 0.9% 100 ML IVPB SCH (09:10)
[2023-01-25] MEDS: Pantoprazole 40 MG VIAL IVP SCH ×2 (09:10→21:05)
[2023-01-25] MEDS: Ascorbic Acid 500 mg Chewable Tablet PO SCH ×2 (09:10→21:05)
[2023-01-25] MEDS: Calcium Carbonate 600 MG TAB PO SCH (09:10)
[2023-01-25] MEDS: Potassium Chloride 10 MEQ TAB PO SCH (09:13)
[2023-01-25] MEDS: Escitalopram Oxalate 20 mg Tablet PO SCH (09:13)
[2023-01-25] MEDS: Hydrocortisone 10 mg Tablet PO SCH ×2 (09:13→16:13)
[2023-01-25] MEDS ORDERED: Ketorolac Tromethamine 30 MG/ML VIAL IVP PRN (17:39)
[2023-01-25] MEDS: Multivitamins, Adult 10 ML, Folic Acid 1 MG, Thiamine HCl 100 MG in Dextrose 5 %-0.45 %... IV SCH (18:17)
[2023-01-25] MEDS: FENTANYL 500 MCG/10 ML VIAL 2,000 MCG in Sodium Chloride 0.9% 60 ML IV PRN (22:15)
[2023-01-26] MEDS ORDERED: Ketorolac Tromethamine 30 MG/ML VIAL IVP PRN
[2023-01-26] MEDS: traZODone HCl 50 MG TAB PO SCH ×2 (00:24→23:57)
[2023-01-26] MEDS: NS 0.9% w/ 20 MEQ KCL 1,000 ML/1,000 ML BAG IV SCH ×4 (00:25→18:09)
[2023-01-26 05:41] LABS: #Monocytes 0.3 thou/uL (0.11-0.59); #Neutrophils 3.8 thou/uL (1.40-6.50); %Eosinophils 0.4 % (0.0-10.0); %Lymphocytes 13.7 % (21.0-51.0); %Monocytes 6.8 % (0.0-10.0); %Neutrophils 78.5 % (42.0-75.0); Hemoglobin 8.7 g/dL (12.0-16.0); Mean Corpuscular Hemoglobin 28.4 pg (27.0-31.0); RBC Distribution Width 16.1 % (11.5-14.5); Red Blood Cell (RBC) Count 3.06 mill/uL (4.20-5.40); White Blood Cell (WBC) Count 4.8 10x3/uL (4.8-10.8)
[2023-01-26 06:00] LABS: Lactic Acid 0.7 mmol/L (0.5-2.2)
[2023-01-26 06:08] LABS: Anion Gap 7 mmol/L (10-20); BUN (Urea Nitrogen) 7 mg/dL (7.0-18.7); Calc. Creatinine Clearance 162 mL/min (70-130); Carbon Dioxide 20 mmol/L (22-29); Chloride 110 mmol/L (98-107); Estimated GFR 121; Glucose 92 mg/dL (70-105); Potassium 4.6 mmol/L (3.5-5.1); Sodium 132 mmol/L (136-145)
[2023-01-26 06:36] LABS: Platelet Count 86 10x3/uL (130-400)
[2023-01-26] MEDS ORDERED: traMADol HCl 50 MG TAB PO PRN (08:38)
[2023-01-26] MEDS: Gabapentin 300 MG CAP PO SCH ×3 (09:00→09:19)
[2023-01-26] MEDS: Rifaximin 200 MG TAB PO SCH ×2 (10:07→23:58)
[2023-01-26] MEDS: cefTRIAXone\\ROCEPHIN 2 GM in Sodium Chloride 0.9% 100 ML IVPB SCH (10:08)
[2023-01-26] MEDS: Pantoprazole 40 MG VIAL IVP SCH (10:09)
[2023-01-26] MEDS: Hydrocortisone 10 mg Tablet PO SCH ×2 (10:10→14:44)
[2023-01-26] MEDS: Potassium Chloride 10 MEQ TAB PO SCH (10:10)
[2023-01-26] MEDS: Escitalopram Oxalate 20 mg Tablet PO SCH (10:10)
[2023-01-26] MEDS: Calcium Carbonate 600 MG TAB PO SCH (10:10)
[2023-01-26] MEDS: Ascorbic Acid 500 mg Chewable Tablet PO SCH ×2 (10:10→23:58)
[2023-01-26] MEDS: busPIRone HCl 5 MG TAB PO SCH ×3 (10:12→23:57)
[2023-01-26] MEDS: Loratadine 10 MG TAB PO SCH (10:13)
[2023-01-26] MEDS: Acetaminophen 500 MG TAB PO SCH ×3 (12:40→23:58)
[2023-01-26] MEDS: FENTANYL 500 MCG/10 ML VIAL 2,000 MCG in Sodium Chloride 0.9% 60 ML IV PRN (23:34)
[2023-01-27] MEDS: NS 0.9% w/ 20 MEQ KCL 1,000 ML/1,000 ML BAG IV SCH (00:01)
[2023-01-27] MEDS ORDERED: Cyclobenzaprine 10 MG TAB PO PRN ×2 (01:05→07:55)
[2023-01-27] MEDS ORDERED: Acetaminophen 325 MG TAB PO SCH ×2 (01:15→08:00)
[2023-01-27] MEDS ORDERED: traMADol HCl 50 MG TAB PO SCH (06:00)
[2023-01-27 06:36] LABS: #Eosinphils 0.2 thou/uL (0.0-0.7); #Monocytes 0.5 thou/uL (0.11-0.59); #Neutrophils 4.5 thou/uL (1.40-6.50); %Basophils 0.2 % (0.0-1.0); %Eosinophils 2.4 % (0.0-10.0); %Lymphocytes 18.8 % (21.0-51.0); %Monocytes 7.5 % (0.0-10.0); %Neutrophils 70.8 % (42.0-75.0); Hematocrit 30.2 % (36.0-47.0); Mean Corpuscular HGB CONC 29.8 g/dL (32.0-36.0); Mean Corpuscular Hemoglobin 28.6 pg (27.0-31.0); Mean Corpuscular Volume 95.9 fl (78.0-98.0); Mean Platelet Volume 10.7 fL (7.4-10.4); RBC Distribution Width 16.2 % (11.5-14.5); Red Blood Cell (RBC) Count 3.15 mill/uL (4.20-5.40); White Blood Cell (WBC) Count 6.3 10x3/uL (4.8-10.8)
[2023-01-27 06:40] LABS: Platelet Count 85 10x3/uL (130-400)
[2023-01-27] MEDS: Acetaminophen 500 MG TAB PO SCH (06:46)
[2023-01-27] MEDS ORDERED: Morphine 2 MG/ML VIAL SLOW IVP PRN (07:55)
[2023-01-27] MEDS ORDERED: HYDROcodone/Acetaminophen 7.5/325 mg Tablet PO SCH (08:00)
[2023-01-27 08:55] LABS: Calcium 7.3 mg/dL (7.8-10.44); Chloride 107 mmol/L (98-107); Potassium 4.2 mmol/L (3.5-5.1); Sodium 132 mmol/L (136-145)
[2023-01-27 08:56] LABS: Glucose 94 mg/dL (70-105)
[2023-01-27 08:57] LABS: Anion Gap 8 mmol/L (10-20); Carbon Dioxide 21 mmol/L (22-29)
[2023-01-27 08:59] LABS: Calc. Creatinine Clearance 165 mL/min (70-130); Estimated GFR 121
[2023-01-27 09:00] LABS: BUN (Urea Nitrogen) 4 mg/dL (7.0-18.7)
[2023-01-27] MEDS: Calcium Carbonate 600 MG TAB PO SCH (09:22)
[2023-01-27] MEDS: Gabapentin 300 MG CAP PO SCH ×4 (09:22→20:54)
[2023-01-27] MEDS: Potassium Chloride 10 MEQ TAB PO SCH (09:23)
[2023-01-27] MEDS: Saccharomyces boulardii 250 MG CAP PO SCH (09:24)
[2023-01-27] MEDS: Acetaminophen 325 MG TAB PO SCH ×3 (09:24→20:55)
[2023-01-27] MEDS: busPIRone HCl 5 MG TAB PO SCH ×3 (09:24→20:53)
[2023-01-27] MEDS: Loratadine 10 MG TAB PO SCH (09:24)
[2023-01-27] MEDS: Escitalopram Oxalate 20 mg Tablet PO SCH (09:24)
[2023-01-27] MEDS: Ascorbic Acid 500 mg Chewable Tablet PO SCH ×2 (09:24→20:54)
[2023-01-27] MEDS: Famotidine 20 MG TAB PO SCH ×2 (09:25→20:54)
[2023-01-27] MEDS: Hydrocortisone 10 mg Tablet PO SCH ×2 (09:25→14:30)
[2023-01-27] MEDS: Pantoprazole 40 MG VIAL IVP SCH ×2 (09:25)
[2023-01-27] MEDS: cefTRIAXone\\ROCEPHIN 2 GM in Sodium Chloride 0.9% 100 ML IVPB SCH (09:26)
[2023-01-27] MEDS: Polyethylene Glycol 3350 17 GM Packet PO SCH (09:33)
[2023-01-27] MEDS: Senokot S 8.6-50 MG TAB PO SCH ×2 (09:33→20:56)
[2023-01-27] MEDS: Rifaximin 200 MG TAB PO SCH ×2 (09:33→20:52)
[2023-01-27] MEDS: ALPRAZolam 0.5 MG TAB PO PRN (11:46)
[2023-01-27] MEDS: HYDROcodone/Acetaminophen 7.5/325 mg Tablet PO SCH ×3 (12:21→20:55)
[2023-01-27] MEDS: Ondansetron ODT 8 MG TAB PO PRN (18:18)
[2023-01-27] MEDS: traZODone HCl 50 MG TAB PO SCH (20:53)
[2023-01-28] MEDS: ALPRAZolam 0.5 MG TAB PO PRN (00:37)
[2023-01-28] MEDS: Ibuprofen 200 MG TAB PO PRN ×3 (00:37→16:13)
[2023-01-28] MEDS: Ondansetron ODT 8 MG TAB PO PRN ×3 (00:37→18:05)
[2023-01-28] MEDS: Acetaminophen 325 MG TAB PO SCH ×4 (04:55→21:06)
[2023-01-28 05:23] LABS: #Eosinphils 0.2 thou/uL (0.0-0.7); #Monocytes 0.8 thou/uL (0.11-0.59); %Basophils 0.6 % (0.0-1.0); %Eosinophils 3.2 % (0.0-10.0); %Lymphocytes 23.4 % (21.0-51.0); %Monocytes 11.3 % (0.0-10.0); %Neutrophils 61.2 % (42.0-75.0); Hematocrit 31.7 % (36.0-47.0); Hemoglobin 9.4 g/dL (12.0-16.0); Mean Corpuscular HGB CONC 29.7 g/dL (32.0-36.0); Mean Corpuscular Hemoglobin 28.3 pg (27.0-31.0); Mean Corpuscular Volume 95.5 fl (78.0-98.0); Mean Platelet Volume 10.9 fL (7.4-10.4); Platelet Count 123 10x3/uL (130-400); RBC Distribution Width 16.7 % (11.5-14.5); Red Blood Cell (RBC) Count 3.32 mill/uL (4.20-5.40); White Blood Cell (WBC) Count 6.6 10x3/uL (4.8-10.8)
[2023-01-28 05:47] LABS: Anion Gap 9 mmol/L (10-20); BUN (Urea Nitrogen) 8 mg/dL (7.0-18.7); Calc. Creatinine Clearance 120 mL/min (70-130); Calcium 7.8 mg/dL (7.8-10.44); Carbon Dioxide 26 mmol/L (22-29); Chloride 104 mmol/L (98-107); Estimated GFR 108; Glucose 80 mg/dL (70-105); Potassium 4.6 mmol/L (3.5-5.1); Sodium 134 mmol/L (136-145)
[2023-01-28] MEDS: Hydrocortisone 10 mg Tablet PO SCH ×3 (08:24→21:00)
[2023-01-28] MEDS: Rifaximin 200 MG TAB PO SCH ×2 (08:24→20:59)
[2023-01-28] MEDS: Calcium Carbonate 600 MG TAB PO SCH (08:24)
[2023-01-28] MEDS: Loratadine 10 MG TAB PO SCH (08:24)
[2023-01-28] MEDS: Potassium Chloride 10 MEQ TAB PO SCH (08:24)
[2023-01-28] MEDS: Escitalopram Oxalate 20 mg Tablet PO SCH (08:24)
[2023-01-28] MEDS: Ascorbic Acid 500 mg Chewable Tablet PO SCH ×2 (08:24→21:10)
[2023-01-28] MEDS: Saccharomyces boulardii 250 MG CAP PO SCH (08:24)
[2023-01-28] MEDS: Famotidine 20 MG TAB PO SCH ×2 (08:24→21:05)
[2023-01-28] MEDS: HYDROcodone/Acetaminophen 7.5/325 mg Tablet PO SCH ×4 (08:25→21:05)
[2023-01-28] MEDS: busPIRone HCl 5 MG TAB PO SCH ×3 (08:25→21:01)
[2023-01-28] MEDS: Senokot S 8.6-50 MG TAB PO SCH ×2 (08:26→21:06)
[2023-01-28] MEDS: Gabapentin 300 MG CAP PO SCH ×4 (08:26→21:05)
[2023-01-28] MEDS: Polyethylene Glycol 3350 17 GM Packet PO SCH (08:26)
[2023-01-28] MEDS ORDERED: Phenol 177 ML BOT PO PRN (13:18)
[2023-01-28] MEDS ORDERED: Tamsulosin HCl 0.4 MG CAP PO SCH ×2 (15:23→15:33)
[2023-01-28] MEDS ORDERED: Furosemide 20 MG/2 ML VIAL SLOW IVP SCH (15:30)
[2023-01-28] MEDS: traZODone HCl 50 MG TAB PO SCH (21:00)
[2023-01-29] MEDS: Ibuprofen 200 MG TAB PO PRN (01:48)
[2023-01-29] MEDS: ALPRAZolam 0.5 MG TAB PO PRN ×2 (01:49→21:28)
[2023-01-29] MEDS: Acetaminophen 325 MG TAB PO SCH (04:51)
[2023-01-29 05:59] LABS: #Eosinphils 0.2 thou/uL (0.0-0.7); #Monocytes 0.6 thou/uL (0.11-0.59); #Neutrophils 2.5 thou/uL (1.40-6.50); %Basophils 0.4 % (0.0-1.0); %Eosinophils 3.5 % (0.0-10.0); %Lymphocytes 28.1 % (21.0-51.0); %Monocytes 12.6 % (0.0-10.0); Hematocrit 30.3 % (36.0-47.0); Hemoglobin 9.4 g/dL (12.0-16.0); Mean Corpuscular Volume 93.5 fl (78.0-98.0); Mean Platelet Volume 10.5 fL (7.4-10.4); Platelet Count 120 10x3/uL (130-400); RBC Distribution Width 17.1 % (11.5-14.5); Red Blood Cell (RBC) Count 3.24 mill/uL (4.20-5.40); White Blood Cell (WBC) Count 4.5 10x3/uL (4.8-10.8)
[2023-01-29 06:26] LABS: Anion Gap 8 mmol/L (10-20); BUN (Urea Nitrogen) 10 mg/dL (7.0-18.7); Calc. Creatinine Clearance 134 mL/min (70-130); Calcium 7.9 mg/dL (7.8-10.44); Carbon Dioxide 30 mmol/L (22-29); Chloride 101 mmol/L (98-107); Estimated GFR 116; Glucose 96 mg/dL (70-105); Sodium 135 mmol/L (136-145)
[2023-01-29] MEDS ORDERED: Furosemide 20 MG/2 ML VIAL SLOW IVP SCH ×2 (09:00→16:00)
[2023-01-29] MEDS ORDERED: oxyCODONE 5 MG TAB PO PRN (09:00)
[2023-01-29] MEDS ORDERED: Tamsulosin HCl 0.4 MG CAP PO SCH ×2 (09:00→15:23)
[2023-01-29] MEDS: Saccharomyces boulardii 250 MG CAP PO SCH (10:40)
[2023-01-29] MEDS: Calcium Carbonate 600 MG TAB PO SCH (10:41)
[2023-01-29] MEDS: Rifaximin 200 MG TAB PO SCH ×2 (10:41→21:29)
[2023-01-29] MEDS: Gabapentin 300 MG CAP PO SCH ×4 (10:41→21:26)
[2023-01-29] MEDS: HYDROcodone/Acetaminophen 7.5/325 mg Tablet PO SCH ×4 (10:41→21:27)
[2023-01-29] MEDS: Hydrocortisone 10 mg Tablet PO SCH ×3 (10:42→21:25)
[2023-01-29] MEDS: Potassium Chloride 10 MEQ TAB PO SCH (10:43)
[2023-01-29] MEDS: Tamsulosin HCl 0.4 MG CAP PO SCH (10:43)
[2023-01-29] MEDS: Famotidine 20 MG TAB PO SCH ×2 (10:43→21:27)
[2023-01-29] MEDS: Escitalopram Oxalate 20 mg Tablet PO SCH (10:43)
[2023-01-29] MEDS: busPIRone HCl 5 MG TAB PO SCH ×3 (10:44→21:27)
[2023-01-29] MEDS: Ascorbic Acid 500 mg Chewable Tablet PO SCH ×2 (10:45→21:26)
[2023-01-29] MEDS: Loratadine 10 MG TAB PO SCH (10:46)
[2023-01-29] MEDS: Polyethylene Glycol 3350 17 GM Packet PO SCH (10:52)
[2023-01-29] MEDS: Senokot S 8.6-50 MG TAB PO SCH ×2 (10:52→21:28)
[2023-01-29] MEDS ORDERED: Furosemide 40 MG TAB PO PRN (15:54)
[2023-01-29] MEDS ORDERED: Spironolactone 100 MG TAB PO PRN (15:54)
[2023-01-29] MEDS: traZODone HCl 50 MG TAB PO SCH (21:27)
[2023-01-30] MEDS: Ibuprofen 200 MG TAB PO PRN ×2 (02:44→09:51)
[2023-01-30] MEDS: ALPRAZolam 0.5 MG TAB PO PRN (03:47)
[2023-01-30] MEDS: Ondansetron ODT 8 MG TAB PO PRN ×2 (03:47→09:50)
[2023-01-30 07:37] LABS: #Eosinphils 0.1 thou/uL (0.0-0.7); #Monocytes 0.9 thou/uL (0.11-0.59); #Neutrophils 2.8 thou/uL (1.40-6.50); %Basophils 0.2 % (0.0-1.0); %Eosinophils 2.7 % (0.0-10.0); %Monocytes 16.6 % (0.0-10.0); %Neutrophils 55.1 % (42.0-75.0); Mean Corpuscular Hemoglobin 28.7 pg (27.0-31.0); Mean Corpuscular Volume 92.4 fl (78.0-98.0); Mean Platelet Volume 10.8 fL (7.4-10.4); Platelet Count 136 10x3/uL (130-400); RBC Distribution Width 17.2 % (11.5-14.5); Red Blood Cell (RBC) Count 3.14 mill/uL (4.20-5.40); White Blood Cell (WBC) Count 5.1 10x3/uL (4.8-10.8)
[2023-01-30 08:04] LABS: Anion Gap 10 mmol/L (10-20); BUN (Urea Nitrogen) 10 mg/dL (7.0-18.7); Calc. Creatinine Clearance 148 mL/min (70-130); Calcium 7.6 mg/dL (7.8-10.44); Carbon Dioxide 29 mmol/L (22-29); Chloride 102 mmol/L (98-107); Estimated GFR 118; Glucose 82 mg/dL (70-105); Potassium 4.1 mmol/L (3.5-5.1); Sodium 137 mmol/L (136-145)
[2023-01-30] MEDS: Calcium Carbonate 600 MG TAB PO SCH (09:49)
[2023-01-30] MEDS: Potassium Chloride 10 MEQ TAB PO SCH (09:49)
[2023-01-30] MEDS: Hydrocortisone 10 mg Tablet PO SCH (09:50)
[2023-01-30] MEDS: Rifaximin 200 MG TAB PO SCH (09:50)
[2023-01-30] MEDS: Escitalopram Oxalate 20 mg Tablet PO SCH (09:50)
[2023-01-30] MEDS: Loratadine 10 MG TAB PO SCH (09:50)
[2023-01-30] MEDS: busPIRone HCl 5 MG TAB PO SCH (09:50)
[2023-01-30] MEDS: Saccharomyces boulardii 250 MG CAP PO SCH (09:50)
[2023-01-30] MEDS: Ascorbic Acid 500 mg Chewable Tablet PO SCH (09:50)
[2023-01-30] MEDS: Tamsulosin HCl 0.4 MG CAP PO SCH (09:50)
[2023-01-30] MEDS: HYDROcodone/Acetaminophen 7.5/325 mg Tablet PO SCH (09:51)
[2023-01-30] MEDS: Gabapentin 300 MG CAP PO SCH (09:51)
[2023-01-30] MEDS: Polyethylene Glycol 3350 17 GM Packet PO SCH (09:52)
[2023-01-30] MEDS: Senokot S 8.6-50 MG TAB PO SCH (09:52)
[2023-01-30] MEDS ORDERED: Furosemide 20 MG/2 ML VIAL SLOW IVP SCH (10:00)
[2023-01-30] MEDS ORDERED: CALCIUM GLUC 1 GM/NS 50 ML 1 GM in Premix 1 BAG IVPB SCH (10:00)
[2023-01-30 11:35] VITALS: BP 115/68; TEMP 98
== END 2023-01-30 12:47 | disposition home or self-care (01) | DRG 336 ==
LOC: ERS 01:35 → SURG B 07:46
PROVIDERS: ADMIT Student in an Organized Health Care Education/Training Program; ATTEND Internal Medicine
PROC: 0DH67UZ Insertion of Feeding Device into Stomach, Via Natural or Artificial Opening (ICD-10-PCS; principal; 2023-01-23)
PROC: 0DNU0ZZ Release Omentum, Open Approach (ICD-10-PCS; 2023-01-23)
PROC: 0FN Hepatobiliary System and Pancreas, Release (ICD-10-PCS; 2023-01-23)
PROC: 0W9G3ZZ Drainage of Peritoneal Cavity, Percutaneous Approach (ICD-10-PCS; 2023-01-23)
DX: K56.51 Intestinal adhesions [bands], with partial obstruction (principal); E27.1 Primary adrenocortical insufficiency; E87.20 Acidosis, unspecified; R18.8 Other ascites; E27.40 Unspecified adrenocortical insufficiency; E87.1 Hypo-osmolality and hyponatremia; K76.82 Hepatic encephalopathy; K52.9 Noninfective gastroenteritis and colitis, unspecified; Z91.048 Other nonmedicinal substance allergy status; Z88.1 Allergy status to other antibiotic agents; Z88.0 Allergy status to penicillin; Z88.2 Allergy status to sulfonamides; I10 Essential (primary) hypertension; Z98.890 Other specified postprocedural states; Z99.3 Dependence on wheelchair; F41.9 Anxiety disorder, unspecified; F31.9 Bipolar disorder, unspecified; Z79.899 Other long term (current) drug therapy; Z79.01 Long term (current) use of anticoagulants; Z90.49 Acquired absence of other specified parts of digestive tract; K74.60 Unspecified cirrhosis of liver; K21.9 Gastro-esophageal reflux disease without esophagitis; N31.9 Neuromuscular dysfunction of bladder, unspecified; K75.81 Nonalcoholic steatohepatitis (NASH); G89.4 Chronic pain syndrome; R33.9 Retention of urine, unspecified
CPT/HCPCS: 36415; 49083; 71045; 71275; 74177; 74250; 76705; 80048; 80053; 81001; 82140; 82533; 83605; 83690; 83735; 84100; 84425; 84484; 84703; 85025; 85379; 85610; 85730; 87040; 93005; 93970; A4314; C1776; C9113; J0613; J0696; J1100; J1170; J1650; J1720; J1885; J1940; J2001; J2250; J2270; J2272; J2360; J2405; J2704; J3010; J3360; J3411; J3480; J3490; J7042; J7120; Q0162; Q9963; Q9967

== ENCOUNTER 2023-08-23 13:51 | Inpatient (IN) | payer MEDICARE, MEDICAID ==
[2023-08-23 14:51] LABS: ALT (SGPT) 54 U/L (8-55); AST (SGOT) 43 U/L (5-34); Albumin 2.3 g/dL (3.5-5.0); Alkaline Phosphatase 185 U/L (40-110); Anion Gap 11 mmol/L (10-20); BUN (Urea Nitrogen) 16 mg/dL (7.0-18.7); Bilirubin, Total 1.6 mg/dL (0.2-1.2); Calc. Creatinine Clearance 0 mL/min (70-130); Calcium 7.9 mg/dL (7.8-10.44); Carbon Dioxide 21 mmol/L (22-29); Chloride 105 mmol/L (98-107); Estimated GFR 96; Glucose 77 mg/dL (70-105); Lipase 4 U/L (8-78); Magnesium 1.9 mg/dL (1.6-2.6); Potassium 4.5 mmol/L (3.5-5.1); Protein, Total 5.3 g/dL (6.0-8.3); Sodium 132 mmol/L (136-145)
[2023-08-23 14:54] LABS: Troponin I Less than 0.010 ng/mL (< 0.028)
[2023-08-23] MEDS ORDERED: Lactulose 20 GM (30 mL) UDCUP ONE (15:06)
[2023-08-23 15:23] LABS: #Basophils 0.04 10x3/uL (0.0-0.2); %Basophils 0.4 % (0.0-1.0); %Eosinophils 0.3 % (0.0-10.0); %Lymphocytes 8.9 % (21.0-51.0); %Monocytes 15.4 % (0.0-10.0); %Neutrophils 74.6 % (42.0-75.0); Hemoglobin 11.7 g/dL (12.0-16.0); Mean Corpuscular HGB CONC 31.6 g/dL (32.0-36.0); Mean Corpuscular Hemoglobin 28.4 pg (27.0-31.0); Mean Corpuscular Volume 89.8 fL (78.0-98.0); Mean Platelet Volume 11.3 fL (7.4-10.4); Platelet Count 189 10x3/uL (130-400); RBC Distribution Width 19.6 % (11.5-14.5); Red Blood Cell (RBC) Count 4.12 mill/uL (4.20-5.40)
[2023-08-23 15:45] LABS: Bacteria/HPF None Seen HPF (None Seen); Bilirubin Negative (Negative); Blood, Urine Negative (Negative); CAUTI Indications for Culture Alt mental st,lethar; Clarity Clear (Clear); Glucose, Urine (Dipstick) Normal (Negative); Ketone, Urine Trace mg/dL (Negative); Leukocyte Negative Leu/uL (Negative); Nitrite Negative (Negative); Protein, Urine (Dipstick) 30 mg/dL (Neg-Trace); RBC/HPF 0-3 HPF (0-3); Squamous Epithelial 0-3 HPF (0-3); Urobilinogen Normal mg/dL (Less than 2); WBC/HPF 0-3 HPF (0-3)
[2023-08-23 15:51] LABS: Urine Culture Reflex No No
[2023-08-23] MEDS ORDERED: Acetaminophen 650 MG Suppository PR PRN (17:34)
[2023-08-23] MEDS ORDERED: Ondansetron ODT 4 MG TAB PO PRN (17:34)
[2023-08-23] MEDS ORDERED: Ondansetron PF 4 MG/2 ML Vial IVP PRN (17:34)
[2023-08-23] MEDS ORDERED: Acetaminophen 325 MG TAB PO PRN (17:34)
[2023-08-23] MEDS ORDERED: Dextrose 50% Abboject 50 ML SYRINGE SLOW IVP PRN (17:47)
[2023-08-23] MEDS ORDERED: Dextrose 5% in Water 1,000 ML IV PRN (17:47)
[2023-08-23] MEDS ORDERED: Glucagon 1 MG/ML KIT IM PRN (17:47)
[2023-08-23 19:41] VITALS: BMI 26.6
[2023-08-23] MEDS: Lactulose 20 GM (30 mL) UDCUP PO SCH (21:34)
[2023-08-23] MEDS: Pantoprazole 40 MG VIAL IVP SCH (21:34)
[2023-08-23] MEDS: Rifaximin 550 MG TAB PO SCH (21:34)
[2023-08-24 05:25] LABS: ALT (SGPT) 51 U/L (8-55); AST (SGOT) 33 U/L (5-34); Albumin 2.3 g/dL (3.5-5.0); Alkaline Phosphatase 196 U/L (40-110); Anion Gap 15 mmol/L (10-20); BUN (Urea Nitrogen) 14 mg/dL (7.0-18.7); Bilirubin, Total 1.6 mg/dL (0.2-1.2); Calc. Creatinine Clearance 107 mL/min (70-130); Calcium 7.8 mg/dL (7.8-10.44); Carbon Dioxide 20 mmol/L (22-29); Chloride 106 mmol/L (98-107); Estimated GFR 95; Globulin 2.8 g/dL (2.4-3.5); Glucose 83 mg/dL (70-105); Potassium 4.5 mmol/L (3.5-5.1); Protein, Total 5.1 g/dL (6.0-8.3); Sodium 136 mmol/L (136-145)
[2023-08-24 06:21] LABS: Hematocrit 34.8 % (36.0-47.0); Hemoglobin 11.2 g/dL (12.0-16.0); Mean Corpuscular HGB CONC 32.2 g/dL (32.0-36.0); Mean Corpuscular Hemoglobin 28.2 pg (27.0-31.0); Mean Corpuscular Volume 87.7 fL (78.0-98.0); Mean Platelet Volume 10.1 fL (7.4-10.4); Platelet Count 150 10x3/uL (130-400); RBC Distribution Width 19.7 % (11.5-14.5); Red Blood Cell (RBC) Count 3.97 mill/uL (4.20-5.40)
[2023-08-24 07:50] LABS: Burr Cells SLIGHT = 2-5 cells HPF (0-1); Eosinophils 1 % (0-10); Lymphocytes 10 % (21-51); Monocytes 8 % (0-10); Neutrophil 81 % (42-75); Platelet Adequacy Comment Platelets Normal; Poikilocytosis SLIGHT = 6-15 cells HPF (0-5); Schistocytes SLIGHT = 2-5 cells HPF (0-1); Target Cells SLIGHT = 2-5 cells HPF (0-1)
[2023-08-24] MEDS: Thiamine 100 MG TAB PO SCH (09:52)
[2023-08-24] MEDS: Folic Acid 1 MG TAB PO SCH (09:52)
[2023-08-24 11:33] VITALS: BMI 26.6
[2023-08-24] MEDS ORDERED: Ondansetron ODT 8 MG TAB PO PRN (16:19)
[2023-08-24] MEDS ORDERED: Spironolactone 100 MG TAB PO PRN (16:19)
[2023-08-24 18:18] LABS: Pregnancy Test - Urine (BHCG) Negative (Negative); Pregu Control Background? CLEAR/WHITE (CLR/WHITE); Pregu Control Bar Appear? YES (CONTROL BAR); Specific Gravity 1.024 (1.002-1.036)
[2023-08-24] MEDS: Sodium Chloride 0.9% 1,000 ML IV SCH (18:19)
[2023-08-24] MEDS: Lactulose 20 GM (30 mL) UDCUP PO SCH (20:35)
[2023-08-24] MEDS: busPIRone HCl 5 MG TAB PO SCH (20:35)
[2023-08-24] MEDS: Pantoprazole DR 40 MG TAB PO SCH (20:35)
[2023-08-24] MEDS ORDERED: D-Mannose [Azo D-Mannose] 500 MG Capsule PO SCH (21:00)
[2023-08-25 05:42] LABS: INR-International Normal Ratio 1.6; Prothrombin Time 19.4 sec (12.0-14.7)
[2023-08-25] MEDS ORDERED: Floranex 1 GM Packet PO SCH (09:00)
[2023-08-25] MEDS: Calcium Carbonate 500 MG TAB PO SCH (09:31)
[2023-08-25] MEDS: Thiamine 100 MG TAB PO SCH (09:31)
[2023-08-25] MEDS: Escitalopram Oxalate 20 mg Tablet PO SCH (09:31)
[2023-08-25] MEDS: Folic Acid 1 MG TAB PO SCH (09:31)
[2023-08-25] MEDS: Hydrocortisone 10 mg Tablet PO SCH (09:31)
[2023-08-25 13:03] LABS: #Basophils 0.03 10x3/uL (0.0-0.2); %Basophils 0.5 % (0.0-1.0); %Eosinophils 0.9 % (0.0-10.0); %Lymphocytes 17.5 % (21.0-51.0); %Neutrophils 65.6 % (42.0-75.0); Hematocrit 31.2 % (36.0-47.0); Hemoglobin 10.7 g/dL (12.0-16.0); Mean Corpuscular HGB CONC 34.3 g/dL (32.0-36.0); Mean Corpuscular Hemoglobin 28.2 pg (27.0-31.0); Mean Corpuscular Volume 82.1 fL (78.0-98.0); Mean Platelet Volume 11.1 fL (7.4-10.4); Platelet Count 134 10x3/uL (130-400); RBC Distribution Width 19.4 % (11.5-14.5)
[2023-08-25] MEDS: Phytonadione 10 MG/ML AMP SC SCH (14:16)
[2023-08-25 15:06] LABS: ALT (SGPT) 50 U/L (8-55); AST (SGOT) 42 U/L (5-34); Albumin 2.1 g/dL (3.5-5.0); Alkaline Phosphatase 191 U/L (40-110); Anion Gap 13 mmol/L (10-20); BUN (Urea Nitrogen) 10 mg/dL (7.0-18.7); Bilirubin, Total 1.7 mg/dL (0.2-1.2); Calc. Creatinine Clearance 114 mL/min (70-130); Calcium 7.4 mg/dL (7.8-10.44); Carbon Dioxide 15 mmol/L (22-29); Chloride 113 mmol/L (98-107); Estimated GFR 102; Globulin 2.8 g/dL (2.4-3.5); Glucose 90 mg/dL (70-105); Potassium 3.8 mmol/L (3.5-5.1); Protein, Total 4.9 g/dL (6.0-8.3); Sodium 137 mmol/L (136-145)
[2023-08-26] MEDS: ALPRAZolam 0.5 MG TAB PO SCH (00:07)
[2023-08-26 03:41] LABS: #Basophils Less than 0.03 10x3/uL (0.0-0.2); %Basophils 0.3 % (0.0-1.0); %Eosinophils 1.4 % (0.0-10.0); %Lymphocytes 31.3 % (21.0-51.0); %Monocytes 11.6 % (0.0-10.0); %Neutrophils 54.9 % (42.0-75.0); Hematocrit 29.8 % (36.0-47.0); Hemoglobin 9.9 g/dL (12.0-16.0); Mean Corpuscular HGB CONC 33.2 g/dL (32.0-36.0); Mean Corpuscular Volume 84.4 fL (78.0-98.0); Mean Platelet Volume 10.3 fL (7.4-10.4); Platelet Count 149 10x3/uL (130-400); RBC Distribution Width 19.4 % (11.5-14.5); Red Blood Cell (RBC) Count 3.53 mill/uL (4.20-5.40)
[2023-08-26 03:50] LABS: INR-International Normal Ratio 1.8
[2023-08-26 03:59] LABS: ALT (SGPT) 61 U/L (8-55); AST (SGOT) 75 U/L (5-34); Albumin 2.1 g/dL (3.5-5.0); Alkaline Phosphatase 197 U/L (40-110); Anion Gap 11 mmol/L (10-20); BUN (Urea Nitrogen) 8 mg/dL (7.0-18.7); Bilirubin, Total 1.7 mg/dL (0.2-1.2); Calc. Creatinine Clearance 103 mL/min (70-130); Calcium 7.4 mg/dL (7.8-10.44); Carbon Dioxide 18 mmol/L (22-29); Chloride 112 mmol/L (98-107); Estimated GFR 91; Globulin 2.7 g/dL (2.4-3.5); Glucose 98 mg/dL (70-105); Potassium 3.5 mmol/L (3.5-5.1); Protein, Total 4.8 g/dL (6.0-8.3); Sodium 137 mmol/L (136-145)
[2023-08-27] MEDS ORDERED: Ibuprofen 800 MG TAB PO PRN (08:46)
[2023-08-27] MEDS ORDERED: Escitalopram Oxalate 20 mg Tablet ONE (08:54)
[2023-08-27] MEDS ORDERED: Thiamine 100 MG TAB ONE (08:54)
[2023-08-27] MEDS ORDERED: Ibuprofen 800 MG TAB ONE (08:54)
[2023-08-27] MEDS ORDERED: Rifaximin 550 MG TAB ONE (08:54)
[2023-08-27] MEDS ORDERED: Hydrocortisone 10 mg Tablet ONE (08:54)
[2023-08-27] MEDS ORDERED: Pantoprazole DR 40 MG TAB ONE (08:54)
[2023-08-27] MEDS ORDERED: Folic Acid 1 MG TAB ONE (08:54)
[2023-08-27] MEDS ORDERED: Lactulose 20 GM (30 mL) UDCUP ONE ×2 (08:54→15:07)
[2023-08-27] MEDS ORDERED: busPIRone HCl 5 MG TAB ONE ×2 (08:54→15:07)
[2023-08-27] MEDS ORDERED: Calcium Carbonate 500 MG TAB ONE (08:54)
[2023-08-27 09:14] LABS: #Basophils 0.04 10x3/uL (0.0-0.2); %Basophils 0.7 % (0.0-1.0); %Eosinophils 1.8 % (0.0-10.0); %Lymphocytes 36.2 % (21.0-51.0); %Monocytes 12.4 % (0.0-10.0); %Neutrophils 48.4 % (42.0-75.0); Hematocrit 34.9 % (36.0-47.0); Hemoglobin 11.6 g/dL (12.0-16.0); Mean Corpuscular HGB CONC 33.2 g/dL (32.0-36.0); Mean Corpuscular Hemoglobin 28.5 pg (27.0-31.0); Mean Corpuscular Volume 85.7 fL (78.0-98.0); Platelet Count 133 10x3/uL (130-400); RBC Distribution Width 19.6 % (11.5-14.5); Red Blood Cell (RBC) Count 4.07 mill/uL (4.20-5.40)
[2023-08-27 09:53] LABS: ALT (SGPT) 111 U/L (8-55); AST (SGOT) 130 U/L (5-34); Albumin 2.3 g/dL (3.5-5.0); Alkaline Phosphatase 235 U/L (40-110); Anion Gap 9 mmol/L (10-20); BUN (Urea Nitrogen) 7 mg/dL (7.0-18.7); Bilirubin, Total 2.1 mg/dL (0.2-1.2); Calc. Creatinine Clearance 108 mL/min (70-130); Calcium 7.7 mg/dL (7.8-10.44); Carbon Dioxide 19 mmol/L (22-29); Chloride 110 mmol/L (98-107); Estimated GFR 96; Globulin 3.3 g/dL (2.4-3.5); Glucose 76 mg/dL (70-105); Potassium 3.6 mmol/L (3.5-5.1); Protein, Total 5.6 g/dL (6.0-8.3); Sodium 134 mmol/L (136-145)
[2023-08-27] MEDS: Melatonin 3 MG TAB PO SCH (11:11)
[2023-08-27] MEDS ORDERED: HYDROcodone/Acetaminophen 7.5/325 mg Tablet PO PRN (13:09)
[2023-08-27] MEDS ORDERED: HYDROcodone/Acetaminophen 7.5/325 mg Tablet ONE (13:50)
[2023-08-27] MEDS: HYDROcodone/Acetaminophen 7.5/325 mg Tablet PO PRN (22:22)
[2023-08-28] MEDS: Furosemide 40 MG TAB PO SCH (08:15)
[2023-08-28 09:13] LABS: #Basophils 0.03 10x3/uL (0.0-0.2); %Basophils 0.4 % (0.0-1.0); %Eosinophils 1.9 % (0.0-10.0); %Lymphocytes 18.2 % (21.0-51.0); %Monocytes 8.4 % (0.0-10.0); %Neutrophils 70.5 % (42.0-75.0); Hematocrit 31.6 % (36.0-47.0); Hemoglobin 10.2 g/dL (12.0-16.0); Mean Corpuscular HGB CONC 32.3 g/dL (32.0-36.0); Mean Corpuscular Hemoglobin 27.7 pg (27.0-31.0); Mean Corpuscular Volume 85.9 fL (78.0-98.0); Mean Platelet Volume 10.5 fL (7.4-10.4); Platelet Count 130 10x3/uL (130-400); RBC Distribution Width 19.7 % (11.5-14.5); Red Blood Cell (RBC) Count 3.68 mill/uL (4.20-5.40)
[2023-08-28 09:29] LABS: Anion Gap 8 mmol/L (10-20); BUN (Urea Nitrogen) 9 mg/dL (7.0-18.7); Calc. Creatinine Clearance 98 mL/min (70-130); Calcium 7.5 mg/dL (7.8-10.44); Carbon Dioxide 20 mmol/L (22-29); Chloride 108 mmol/L (98-107); Estimated GFR 87; Glucose 112 mg/dL (70-105); Sodium 132 mmol/L (136-145)
[2023-08-28 19:42] VITALS: BP 99/56; TEMP 99
== END 2023-08-28 19:35 | DRG 433 ==
LOC: ERS 13:51 → 2NO 17:05 → OBSVTOIN 08-25 09:14
PROVIDERS: ADMIT Internal Medicine; ATTEND Internal Medicine
DX: K74.60 Unspecified cirrhosis of liver (principal); I85.00 Esophageal varices without bleeding; S32.029A Unspecified fracture of second lumbar vertebra, initial encounter for closed fracture; S32.039A Unspecified fracture of third lumbar vertebra, initial encounter for closed fracture; S32.049A Unspecified fracture of fourth lumbar vertebra, initial encounter for closed fracture; S22.089A Unspecified fracture of T11-T12 vertebra, initial encounter for closed fracture; K76.0 Fatty (change of) liver, not elsewhere classified; K76.82 Hepatic encephalopathy; G89.4 Chronic pain syndrome; F19.10 Other psychoactive substance abuse, uncomplicated; F39 Unspecified mood [affective] disorder; E27.8 Other specified disorders of adrenal gland; F41.8 Other specified anxiety disorders; F90.9 Attention-deficit hyperactivity disorder, unspecified type; I10 Essential (primary) hypertension; W19.XXXA Unspecified fall, initial encounter; D64.9 Anemia, unspecified; Z91.148 Patient's other noncompliance with medication regimen for other reason; Z88.0 Allergy status to penicillin; Z88.2 Allergy status to sulfonamides; Z88.1 Allergy status to other antibiotic agents; Z79.899 Other long term (current) drug therapy; Z98.890 Other specified postprocedural states; Z98.891 History of uterine scar from previous surgery; Z90.49 Acquired absence of other specified parts of digestive tract
CPT/HCPCS: 36415; 36416; 51702; 70450; 71045; 72072; 72100; 74176; 76705; 76770; 80048; 80053; 81001; 81025; 82105; 82140; 83605; 83690; 83735; 83880; 84443; 84484; 85025; 85610; 93005; 96374; C9113; G0378; J3430; J7050